=== PATIENT | female | born 1945 ===

== ENCOUNTER 2017-07-09 07:33 | Inpatient (IN) | payer BC, MEDICARE ==
[~2017-07-09] VITALS: Ht 162.6 cm; Wt 78.5 kg
[2017-07-09] VITALS (13 sets, daily range): BP systolic 127–147; BP diastolic 61–68
[~2017-07-09 07:33] MED LIST: ALLOPURINOL300 M1 ORAL; ARMOUR THYROID30 MG ORAL; BIOTIN10 MG PO; CANDESARTAN CIL16 MG PO; CARVEDILOL3.125 MG ORAL; ESTRACE42.5 GM TOPIC; FUROSEMIDE40 MG ORAL; LORAZEPAM1 MG ORAL; LYSINE500 MG PO; MELATONIN3 MG ORAL; POTASSIUM 25 M25 ME1 PO; PRAVACHOL40 MG ORAL; PRESERVISION VITAMIN ORAL; SPIRONOLACTONE100 MG ORAL; VALACYCLOVIR500 MG ORAL; VITAMIN D250000 UNI1 ORAL; [UNRECOGNIZED DRUG - OTHER] ORAL; testosterone cream TOPIC
[2017-07-09] MEDS ORDERED: LR 1000ml 1,000 ML IVLG SCH (08:22)
--- NOTE | 2017-07-09 08:22 | Anethesia Preoperative Eval ---
Anesthesia Pre-op PMH/ROS General Date of Evaluation: Jul 09, 2017 Time of Evaluation: 10:01 Anesthesiologist: Christian ASA Score: ASA 3 Mallampati Score Class I : Soft palate, uvula, fauces, pillars visible Class II: Soft palate, uvula, fauces visible Class III: Soft palate, base of uvula visible Class IV: Only hard plate visible Mallampati Classification: Class II Surgeon: Jessica Diagnosis: R Knee Pain Surgical Procedure: R TKR Anesthesia History: none Family History: no anesthesia problems Allergies: Coded Allergies: SULFA (SULFONAMIDE ANTIBIOTICS) (Verified Allergy, Severe, SWELLING, HIVES , 07/08/17) AMOXICILLIN (Verified Adverse Reaction, Severe, ANAPHYLACTIC REACTION , ) Uncoded Allergies: VICARIL (Adverse Reaction, Severe, BODY REJECTS, 07/08/17) Medications: see eMAR Past Medical History Cardiovascular: Reports: HTN, other - CHF, HL Pulmonary: Reports: TAMIE Gastrointestinal/Genitourinary: Reports: GERD, other - Colon /Rectal CA Hematology/Immune: Reports: other - Skin CA, Colon /Rectal CA Other: obesity - BMI 31 PSxH Narrative: CATHY, Thor Knee Arthroscopy Anesthesia Pre-op Phys. Exam Physician Exam Vital Signs Date Time Temp Pulse Resp B/P (MAP) Pulse Ox O2 Delivery O2 Flow Rate FiO2 07/09/17 08:21 97.7 80 20 140/61 97 Room Air Constitutional: NAD Neurologic: CN 2-12 intact Cardiovascular: RRR Respiratory: CTA Gastrointestinal: S/NT/ND Airway Exam Mallampati Score: Class II MO: limited ROM: limited Teeth: missing, intact Anesthesia Pre-op A/P Risk Assessment & Plan Assessment: ASA 3 Plan: GA, Spinal, R Adductor Block Status Change Before Surgery: No Pre-Antibiotics Dru Grams Ancef IV Given Within 1 Hr of Incision: Yes Time Given: 10:46 Roel Gonzales MD Jul 09, 2017 08:22
--- NOTE | 2017-07-09 08:23 | Immediate Post-Op Evaluation ---
Immediate Post-Op Evalulation Immediate Post-Op Evalulation Procedure: R TKA Date of Evaluation: Jul 09, 2017 Time of Evaluation: 13:04 IV Fluids: 1000 LR Blood Products: 0 Estimated Blood Loss: 50 Urinary Output: 200 Blood Pressure Systolic: 146 Blood Pressure Diastolic: 65 Pulse Rate: 98 Respiratory Rate: 16 O2 Sat by Pulse Oximetry: 100 Temperature (Fahrenheit): 98 Pain Score (1-10): 1 Nausea: No Vomiting: No Complications 0 Patient Status: awake, reacts, patent, extubated, none Hydration Status: adequate Dru Grams Ancef IV Given Within 1 Hr of Incision: Yes Time Given: 10:46 Roel Gonzales MD Jul 09, 2017 08:23
[2017-07-09] MEDS ORDERED: fentaNYL 100 mcg/2 mL IV PRN (08:30)
[2017-07-09] MEDS ORDERED: Ketorolac 30mg Inj IV PRN (08:30)
[2017-07-09] MEDS ORDERED: Norco 5mg/325mg tab ORAL PRN (08:30)
[2017-07-09] MEDS ORDERED: Metoclopramide 10mg/2ml Inj IVP PRN (08:30)
[2017-07-09] MEDS ORDERED: Midazolam 2mg/2ml Inj IVP PRN (08:30)
[2017-07-09] MEDS ORDERED: Atropine Inj 1mg/10ml Syr IV PRN (08:30)
[2017-07-09] MEDS ORDERED: oxyCODONE HCL/Acetaminophen 5/325mg ORAL PRN (08:30)
[2017-07-09] MEDS ORDERED: DiphenhydrAMINE 50mg/ml Inj IVP PRN (08:30)
[2017-07-09] MEDS ORDERED: Norco 7.5mg/325mg tab ORAL PRN (08:30)
[2017-07-09] MEDS ORDERED: Ketorolac 60mg Inj IV PRN (08:30)
[2017-07-09] MEDS ORDERED: LORazepam Inj 2mg/ml 1ml IV PRN (08:30)
[2017-07-09] MEDS ORDERED: Ropivacaine 5mg/ml Vial 20ml INJ ONE (08:40)
[2017-07-09] MEDS ORDERED: Bupivacaine 0.5% Inj 30 ml vial INJ ONE (08:41)
[2017-07-09] MEDS ORDERED: cloNIDine 1000mcg/10ml inj ONE (08:41)
[2017-07-09] MEDS ORDERED: NeoSporin Gu Irrig 1ml Amp IRRIG ONE (09:41)
[2017-07-09] MEDS ORDERED: Bacitracin 50000 Units Vial ONE (09:41)
--- NOTE | 2017-07-09 09:46 | History & Physical ---
History and Physical History & Physicial 72 year old female presents for right TKA. Patient with long standing history of osteoarthritis. Prior chart reviewed and discussed with nursing. I was asked to follow patient post op. patient overall stable. findings noted and discussed with nursing staff. PMH cardiomyopathy hypothyroid colon cancer MEDS/ALLERGIES reviewed SOCIAL HISTORY reviewed PHYSICAL EXAM WDWN NAD clear breath sounds bilaterally without rhonchi or wheeze [id number] without MRG NABS nontender no HSM no CCE nonfocal IMPRESSION cardiomyopathy hypothyroid colon cancer osteoarthritis s/p TKR PLAN 1. incentive spirometry and resume meds 2. Lovenox 3. PT evaluation and therapy 4. Hydration 5. Pain management 6. discharge once stable with outpatient follow up CARITO POLANCO Jul 09, 2017 09:46
[2017-07-09] MEDS ORDERED: NS Irrig 2000ml IRRIG ONE (10:00)
[2017-07-09] MEDS ORDERED: LR 1000ml ONE (10:00)
[2017-07-09] MEDS ORDERED: NS Irrig 1000ml ONE (10:00)
[2017-07-09] MEDS ORDERED: Propofol 200mg/20ml IV ONE (10:00)
[2017-07-09] MEDS ORDERED: Lidocaine 1% MPF 10mg/ml 5ml ONE (10:00)
[2017-07-09] MEDS ORDERED: Sterile Water Irrig 1000ml IRRIG ONE (10:00)
[2017-07-09] MEDS ORDERED: ePHEDrine 50mg/ml Inj ONE (10:00)
[2017-07-09] MEDS ORDERED: Lidocaine 1% Plain 30 ml INJ ONE (10:00)
[2017-07-09] MEDS ORDERED: Sodium Chloride 10ml vial INJ ONE (10:00)
[2017-07-09] MEDS ORDERED: Dexamethasone 4mg/ml vial ONE (10:00)
--- NOTE | 2017-07-09 10:20 | Pre-Procedure Note/Attestation ---
Pre-Procedure Note/Attestation Complete Prior to Procedure Planned Procedure: right Procedure Narrative: right total knee Indications for Procedure Pre-Operative Diagnosis: right knee arthritis Attestation I attest that I discussed the nature of the procedure; its benefits; risks and complications; and alternatives (and the risks and benefits of such alternatives ), prior to the procedure, with the patient (or the patient's legal financial foundations representative). I attest that, if there was a reasonable possibility of needing a blood transfusion, the patient (or the patient's legal financial foundations representative) was given the [facility] standardized written summary, pursuant to the [place] Blood Safety Act ([place] Health and Safety Code # 1645, as amended). I attest that I re-evaluated the patient just prior to the surgery and that there has been no change in the patient's H&P, except as documented below: SIMONA CHARLES Jul 09, 2017 10:20
--- NOTE | 2017-07-09 10:22 | General Progress Note ---
Progress Note Progress Note PRE SURGERY IN FRONT OF OR STAFF AND CLIENT AND TEAM CALLED DR SERGEI ESPANA HE CLEARED CLIENT FOR TOTAL KNEE REPLACEMENT AND STATED TO HAVE MEDS START POSTOP CALLED 10-AM Jun SIMONA CHARLES Jul 09, 2017 10:22
[2017-07-09] MEDS ORDERED: Tranexamic Acid 1,000 MG in NS 65 ML IVPB ONE (12:30)
--- NOTE | 2017-07-09 12:33 | Diagnostic Imaging Report ---
Indication: Pain 3 views of the right knee were obtained. Findings: There is joint space narrowing with marginal osteophyte formation and subchondral sclerosis. Bones are osteopenic. Genu valgum is noted. Impression: Severe osteoarthritis
[2017-07-09] MEDS: Hydromorphone 0.5mg/0.5ml inj IVP PRN ×2 (13:20→13:54)
--- NOTE | 2017-07-09 15:48 | Diagnostic Imaging Report ---
Indication: Pain 2 views of the right knee were obtained. Findings: Cemented total knee arthroplasty demonstrated. Alignment appears normal. Anterior skin camryn, a drain and soft tissue swelling/air noted. Impression: Unremarkable postop after knee replacement
[2017-07-09 16:22] LABS: MEAN CORPUSCULAR HGB CONC 31.3 G/DL (32.0-36.0); MEAN CORPUSCULAR VOLUME 96 FL (80-99); MEAN PLATELET VOLUME 8.6 FL (6.5-10.1); PLATELET COUNT 210 K/UL (150-450); RED BLOOD COUNT 3.76 M/UL (4.20-5.40); RED CELL DISTRIBUTION WIDTH 15.7 % (11.6-14.8); WHITE BLOOD COUNT 18.7 K/UL (4.8-10.8)
[2017-07-09] MEDS ORDERED: Morphine Sulfate 4mg/ml Inj IVP PRN (16:30)
[2017-07-09] MEDS ORDERED: Morphine Sulfate 2mg/ml Inj IVP PRN ×2 (16:30)
[2017-07-09 17:11] LABS: ANISOCYTOSIS 1+; BAND NEUTROPHILS % (MANUAL) 2 % (0-8); BASOPHILS % (MANUAL) 0 % (0-2); EOSINOPHILS % (MANUAL) 0 % (0-3); HYPOCHROMASIA 1+; LYMPHOCYTES % (MANUAL) 3 % (20-45); NEUTROPHILS % (MANUAL) 93 % (45-75); PLATELET ESTIMATE ADEQUATE; PLATELET MORPHOLOGY NORMAL; TOTAL CELLS COUNTED 100
[2017-07-09] MEDS: Norco 7.5mg/325mg tab ORAL PRN (17:55)
[2017-07-09] MEDS: Clindamycin 600mg 50 ML IV SCH (17:57)
[2017-07-09] MEDS: D5 1/2NS w/KCl 20mEq 1,000 ML IV SCH (17:57)
[2017-07-09] MEDS ORDERED: HYDROmorphone 1mg/ml Carpuject IVP PRN ×2 (18:45)
[2017-07-09] MEDS: HYDROmorphone 1mg/ml Carpuject IVP PRN ×2 (19:04→22:06)
--- NOTE | 2017-07-09 19:25 | 48 Hour Post Anesthesia Eval ---
Post Anesthesia Evaluation Procedure: R TKA Date of Evaluation: Jul 09, 2017 Time of Evaluation: 19:23 Blood Pressure Systolic: 146 0: 61 Pulse Rate: 91 Respiratory Rate: 18 Temperature (Fahrenheit): 97.3 O2 Sat by Pulse Oximetry: 99 Airway: patent Nausea: No Vomiting: No Pain Intensity: 1 Hydration Status: adequate Cardiopulmonary Status: stable Mental Status/LOC: patient returned to baseline Follow-up Care/Observations: 0 Post-Anesthesia Complications: 0 Follow-up care needed: N/A Roel Gonzales MD Jul 09, 2017 19:25
[2017-07-10] VITALS: BP 112/65
[2017-07-10] MEDS: Clindamycin 600mg 50 ML IV SCH ×3 (01:00→12:06)
[2017-07-10] MEDS: HYDROmorphone 1mg/ml Carpuject IVP PRN ×8 (01:01→22:53)
[2017-07-10 04:00] VITALS: BP 137/66
[2017-07-10] MEDS: D5 1/2NS w/KCl 20mEq 1,000 ML IV SCH (06:37)
[2017-07-10 08:00] VITALS: BP 128/57
[2017-07-10] MEDS: Furosemide 40mg tab ORAL SCH (08:30)
[2017-07-10] MEDS: valACYclovir HCL 500mg tab ORAL SCH (08:30)
[2017-07-10] MEDS: Spironolactone 50mg tab ORAL SCH ×3 (08:30→21:00)
[2017-07-10] MEDS: Estradiol Vaginal Cr 42.5 Gm Tube VAGIN SCH ×2 (08:31→09:00)
[2017-07-10] MEDS: Enoxaparin 40mg Inj SUBQ SCH (08:33)
[2017-07-10 08:37] LABS: MEAN CORPUSCULAR HEMOGLOBIN 31.9 PG (27.0-31.0); MEAN CORPUSCULAR HGB CONC 32.9 G/DL (32.0-36.0); MEAN CORPUSCULAR VOLUME 97 FL (80-99); MEAN PLATELET VOLUME 8.5 FL (6.5-10.1); PLATELET COUNT 186 K/UL (150-450); RED BLOOD COUNT 3.34 M/UL (4.20-5.40); RED CELL DISTRIBUTION WIDTH 15.4 % (11.6-14.8); WHITE BLOOD COUNT 16.5 K/UL (4.8-10.8)
[2017-07-10 10:56] LABS: ANISOCYTOSIS 1+; BAND NEUTROPHILS % (MANUAL) 0 % (0-8); BASOPHILS % (MANUAL) 0 % (0-2); EOSINOPHILS % (MANUAL) 0 % (0-3); HYPOCHROMASIA 1+; LYMPHOCYTES % (MANUAL) 6 % (20-45); NEUTROPHILS % (MANUAL) 86 % (45-75); PLATELET ESTIMATE ADEQUATE; PLATELET MORPHOLOGY NORMAL; TOTAL CELLS COUNTED 100
[2017-07-10 12:00] VITALS: BP 139/63
--- NOTE | 2017-07-10 13:45 | General Progress Note ---
Assessment/Plan Assessment/Plan IMPRESSION cardiomyopathy hypothyroid colon cancer osteoarthritis s/p TKR PLAN 1. incentive spirometry and resume meds 2. Lovenox to start 3. PT evaluation and therapy 4. Hydration 5. Pain management 6. discharge once stable with outpatient follow up impression, plan, and exam edited and reviewed in detail care discussed with RN Subjective Allergies: Coded Allergies: SULFA (SULFONAMIDE ANTIBIOTICS) (Verified Allergy, Severe, SWELLING, HIVES , 07/08/17) AMOXICILLIN (Verified Adverse Reaction, Severe, ANAPHYLACTIC REACTION , ) Uncoded Allergies: VICARIL (Adverse Reaction, Severe, BODY REJECTS, 07/08/17) Subjective stable has some pain no distress Objective Last 24 Hour Vital Signs Date Time Temp Pulse Resp B/P (MAP) Pulse Ox O2 Delivery O2 Flow Rate FiO2 07/10/17 12:46 97.0 07/10/17 12:00 98.2 96 19 139/63 97 Room Air 07/10/17 08:00 98.2 95 19 128/57 100 Nasal Cannula 3.0 07/10/17 04:00 97.0 93 20 137/66 99 Nasal Cannula 07/10/17 04:00 87 07/10/17 00:00 97.0 97 20 112/65 99 Nasal Cannula 2.0 07/10/17 00:00 94 07/09/17 20:00 97.7 64 18 127/61 97 Room Air 07/09/17 20:00 95 07/09/17 19:25 91 18 99 07/09/17 16:00 99 07/09/17 15:44 97.3 91 18 147/64 99 Nasal Cannula 3.0 07/09/17 14:18 97.6 93 20 141/68 100 Nasal Cannula 3.0 07/09/17 14:08 97.6 95 20 142/65 100 Nasal Cannula 3.0 07/09/17 14:06 98.0 07/09/17 14:06 98.0 07/09/17 13:52 91 20 138/64 100 Nasal Cannula 3.0 Intake and Output 07/10/17 07/11/17 19:00 07:00 Intake Total 365 ml Output Total 350 ml Balance 15 ml Intake Oral 240 ml IV Total 125 ml Output Urine Total 350 ml # Voids 1 Laboratory Tests 07/09/17 15:20: White Blood Count 18.7H, Red Blood Count 3.76L, Hemoglobin 11.3L, Hematocrit 36.1L, Mean Corpuscular Volume 96, Mean Corpuscular Hemoglobin 30.0, Mean Corpuscular Hemoglobin Concent 31.3L, Red Cell Distribution Width 15.7H, Platelet Count 210, Mean Platelet Volume 8.6, Neutrophils (%) (Auto) , Lymphocytes (%) (Auto) , Monocytes (%) (Auto) , Eosinophils (%) (Auto) , Basophils (%) (Auto) , Differential Total Cells Counted 100, Neutrophils % ( Manual) 93H, Lymphocytes % (Manual) 3L, Monocytes % (Manual) 2, Eosinophils % ( Manual) 0, Basophils % (Manual) 0, Band Neutrophils 2, Platelet Estimate Adequate, Platelet Morphology Normal, Hypochromasia 1+, Anisocytosis 1+, Prothrombin Time 10.0, Prothromb Time International Ratio 1.0 07/10/17 07:35: White Blood Count 16.5H, Red Blood Count 3.34L, Hemoglobin 10.6L, Hematocrit 32.3L, Mean Corpuscular Volume 97, Mean Corpuscular Hemoglobin 31.9H, Mean Corpuscular Hemoglobin Concent 32.9, Red Cell Distribution Width 15.4H, Platelet Count 186, Mean Platelet Volume 8.5, Neutrophils (%) (Auto) , Lymphocytes (%) (Auto) , Monocytes (%) (Auto) , Eosinophils (%) (Auto) , Basophils (%) (Auto) , Differential Total Cells Counted 100, Neutrophils % ( Manual) 86H, Lymphocytes % (Manual) 6L, Monocytes % (Manual) 8, Eosinophils % ( Manual) 0, Basophils % (Manual) 0, Band Neutrophils 0, Platelet Estimate Adequate, Platelet Morphology Normal, Hypochromasia 1+, Anisocytosis 1+, Prothrombin Time 10.0, Prothromb Time International Ratio 1.0 Height (Feet): 5 Height (Inches): 4.00 Weight (Pounds): 173 Objective WDWN NAD clear breath sounds bilaterally without rhonchi or wheeze [id number] without MRG NABS nontender no HSM no CCE nonfocal CARITO POLANCO Jul 10, 2017 13:45
[2017-07-10 16:00] VITALS: BP 125/60
[2017-07-10 20:50] VITALS: BP 119/52
[2017-07-11 00:43] VITALS: BP 139/62
[2017-07-11] MEDS: HYDROmorphone 1mg/ml Carpuject IVP PRN ×3 (02:47→06:21)
[2017-07-11 04:50] VITALS: BP 118/64
[2017-07-11] MEDS ORDERED: dilTIAZem HCl 25mg/5ml Inj IV ONE ×2 (06:00→08:45)
[2017-07-11 08:00] VITALS: BP 111/67
--- NOTE | 2017-07-11 08:30 | Operative Note - Dictated ---
DATE OF OPERATION: 07/09/2017 PREOPERATIVE DIAGNOSIS: Right knee end-stage osteoarthritis with valgus deformity. POSTOPERATIVE DIAGNOSIS: Right knee end-stage osteoarthritis with valgus deformity. PROCEDURES: Right total knee replacement, modifier 22 secondary to difficulty of the valgus deformity. SURGEON: Gonzales Langley M.D. CANOE BUILDER: Roel Gonzales M.D. SILK CONDITIONER: None. PREOPERATIVE NOTE: This is a pleasant lady who has been having issues with her knee and has knock knee deformity, has had multiple treatments. She has end-stage pain, end-stage findings. I explained to her the surgery and risks being infection, bleeding, anesthetic risks, neurovascular damage, DVT, PE, and failure of the operation. The patient agreed. Consents were obtained. OPERATIVE ROOM NOTE: Under the benefit of endotracheal intubation, general anesthetic, spinal anesthetic, and an adductor, the patient's right knee was prepped and draped in the appropriate manner. The patient was given 1 gram of antibiotic Ancef. A midline incision was done and I incised through subcutaneous tissue down through medial retinaculum, and everted the patella. I then proceeded to remove all the osteophytes. I then proceeded to the femur on the inferior and lateral planes taking a 7 degree valgus cut. I then made my anterior cuts, posterior cuts, anterior chamfer and posterior chamfer cuts after sizing it to be a 9. I was very pleased with the position. I then proceeded to make a cut upon the proximal tibia. I aligned it with the mechanical axis. I took 2 mm off the low side, which is lateral. A cut was made and the tibial plateau block was removed. We had nice alignment with some slight valgus, 7 degrees. We had full medial and lateral stability at 0, 30, 60, 90, and 120. I then proceeded to accept these components. I accepted an F tibia as well as a 2 polyethylene. I also shaved off the patella using 29 mm patella plug. With that, we all bone was prepped with pulse lavage. I then cemented the tibia in, cemented the femur in, and the patella plug in, placed in a 10 mm spacer. I irrigated the wound copiously, closing the retinaculum with #2 Ethibond and FiberWire as the patient was allergic to Vicryl. I closed the subcutaneous tissue with catgut and the skin with camryn. The patient went to recovery room in stable condition. There were no complications during the procedure, modifier 22 secondary to difficulty of valve and the valgus deformity was done. Bal Nacho Langley DR: SARAH JOB#: [id number] CC: REILLY
[2017-07-11] MEDS: Furosemide 40mg tab ORAL SCH (08:41)
[2017-07-11] MEDS: valACYclovir HCL 500mg tab ORAL SCH (08:42)
[2017-07-11] MEDS: Enoxaparin 40mg Inj SUBQ SCH (08:47)
[2017-07-11] MEDS: Estradiol Vaginal Cr 42.5 Gm Tube VAGIN SCH (08:53)
--- NOTE | 2017-07-11 08:57 | General Progress Note ---
Assessment/Plan Assessment/Plan IMPRESSION cardiomyopathy hypothyroid colon cancer osteoarthritis s/p TKR afib with RVR PLAN 1. incentive spirometry and resume meds 2. Lovenox daily 3. PT evaluation and therapy 4. Cardizem IV to repeat 5. Pain management 6. discharge once stable with outpatient follow up impression, plan, and exam edited and reviewed in detail care discussed with RN Subjective Allergies: Coded Allergies: SULFA (SULFONAMIDE ANTIBIOTICS) (Verified Allergy, Severe, SWELLING, HIVES , 07/08/17) AMOXICILLIN (Verified Adverse Reaction, Severe, ANAPHYLACTIC REACTION , ) Uncoded Allergies: VICARIL (Adverse Reaction, Severe, BODY REJECTS, 07/08/17) Subjective had atrial fib with RVR hemodynamics stable no distress Objective Last 24 Hour Vital Signs Date Time Temp Pulse Resp B/P (MAP) Pulse Ox O2 Delivery O2 Flow Rate FiO2 07/11/17 08:41 70 111/67 07/11/17 08:00 97.0 70 20 111/67 97 Room Air 07/11/17 06:05 140 119/70 07/11/17 04:50 98.3 131 20 118/64 94 Room Air 07/11/17 04:26 115 07/11/17 00:43 98.1 91 20 139/62 92 Room Air 07/11/17 00:00 92 07/10/17 20:50 97.5 88 20 119/52 93 Room Air 07/10/17 20:00 97 07/10/17 16:14 97.0 07/10/17 16:00 103 07/10/17 16:00 98.2 91 19 125/60 98 Nasal Cannula 3.0 07/10/17 12:00 91 07/10/17 12:00 98.2 96 19 139/63 97 Room Air Height (Feet): 5 Height (Inches): 4.00 Weight (Pounds): 173 Objective WDWN NAD clear breath sounds bilaterally without rhonchi or wheeze S1S2 iRR tachy without MRG NABS nontender no HSM no CCE nonfocal CARITO POLANCO Jul 11, 2017 08:57
[2017-07-11 09:11] LABS: MEAN CORPUSCULAR HEMOGLOBIN 30.4 PG (27.0-31.0); MEAN CORPUSCULAR HGB CONC 31.2 G/DL (32.0-36.0); MEAN CORPUSCULAR VOLUME 97 FL (80-99); MEAN PLATELET VOLUME 8.6 FL (6.5-10.1); PLATELET COUNT 196 K/UL (150-450); RED CELL DISTRIBUTION WIDTH 15.7 % (11.6-14.8); WHITE BLOOD COUNT 15.7 K/UL (4.8-10.8)
[2017-07-11 09:21] LABS: INR 0.9 (0.9-1.1); PROTHROMBIN TIME 9.7 SEC (9.30-11.50)
[2017-07-11] MEDS: Hydromorphone 0.5mg/0.5ml inj IVP PRN ×3 (09:33→15:44)
[2017-07-11 10:09] LABS: ANISOCYTOSIS 1+; BAND NEUTROPHILS % (MANUAL) 0 % (0-8); BASOPHILS % (MANUAL) 0 % (0-2); EOSINOPHILS % (MANUAL) 1 % (0-3); HYPOCHROMASIA 1+; LYMPHOCYTES % (MANUAL) 5 % (20-45); NEUTROPHILS % (MANUAL) 84 % (45-75); PLATELET ESTIMATE ADEQUATE; PLATELET MORPHOLOGY NORMAL; TOTAL CELLS COUNTED 100
[2017-07-11 12:00] VITALS: BP 118/56
[2017-07-11 13:32] LABS: ALANINE AMINOTRANSFERASE 25 U/L (12-78); ALBUMIN/GLOBULIN RATIO 1.1 (1.0-2.7); ANION GAP 7 mmol/L (5-15); ASPARTATE AMINO TRANSFERASE 27 U/L (15-37); CALCIUM 9.8 MG/DL (8.5-10.1); CARBON DIOXIDE 29 MMOL/L (21-32); CHLORIDE 101 MMOL/L (98-107); CREATININE 1.6 MG/DL (0.55-1.30); SODIUM 137 MMOL/L (136-145); TOTAL PROTEIN 6.5 G/DL (6.4-8.2)
[2017-07-11] MEDS: Metoprolol 5mg/5ml Inj IVP SCH ×2 (13:44→14:03)
[2017-07-11] MEDS ORDERED: Enoxaparin 40mg Inj SUBQ ONE (14:15)
--- NOTE | 2017-07-11 14:42 | Consultation ---
History of Present Illness General Date patient seen: Jul 11, 2017 Present Illness Allergies: Coded Allergies: SULFA (SULFONAMIDE ANTIBIOTICS) (Verified Allergy, Severe, SWELLING, HIVES , 07/08/17) AMOXICILLIN (Verified Adverse Reaction, Severe, ANAPHYLACTIC REACTION , ) Uncoded Allergies: VICARIL (Adverse Reaction, Severe, BODY REJECTS, 07/08/17) Medication History Scheduled Allopurinol* (Allopurinol*), 300 MG ORAL DAILY, (Reported) Biotin (Biotin), 1,000 MG PO THREE TIMES A DAY, (Reported) Candesartan Cilexetil (Candesartan Cilexetil), 16 MG PO DAILY, (Reported) Carvedilol* (Carvedilol*), 3.125 MG ORAL EVERY OTHER DAY, (Reported) Ergocalciferol (Vitamin D2)* (Vitamin D*), 50,000 UNIT ORAL ONCE A WEEK, ( Reported) Estradiol* (Estrace*), 1 APPLIC TOPIC DAILY, (Reported) Furosemide* (Lasix*), 40 MG ORAL DAILY, (Reported) Lysine (Lysine), Unknown Dose PO BEDTIME, (Reported) Melatonin (Melatonin), 3 MG ORAL BEDTIME, (Reported) Pravastatin Sodium (Pravachol), 20 MG ORAL DAILY, (Reported) Spironolactone* (Spironolactone*), 50 MG ORAL DAILY, (Reported) Thyroid* ([place] Thyroid*), 90 MG ORAL DAILY, (Reported) Valacyclovir Hcl* (Valtrex*), 500 MG ORAL DAILY, (Reported) [ev plus], 500 MG ORAL THREE TIMES A DAY, (Reported) [preservision vitamin], Unknown Dose ORAL TWICE A DAY, (Reported) [testosterone cream], 6 MG TOPIC DAILY, (Reported) Miscellaneous Medications Lorazepam* (Lorazepam*), 1 MG ORAL, (Reported) Potassium Bicarbonate/Cit Ac (Potassium 25 Meq Tablet Eff), 25 MEQ PO, (Reported ) Patient History Healthcare decision maker MARY- Resuscitation status Full Code Advanced Directive on File No Physical Exam Last 24 Hour Vital Signs Date Time Temp Pulse Resp B/P (MAP) Pulse Ox O2 Delivery O2 Flow Rate FiO2 07/11/17 14:03 121 108/85 07/11/17 13:44 130 118/56 07/11/17 12:00 97.1 67 21 118/56 91 Room Air 07/11/17 08:57 140 111/67 07/11/17 08:41 70 111/67 07/11/17 08:00 97.0 70 20 111/67 97 Room Air 07/11/17 06:05 140 119/70 07/11/17 04:50 98.3 131 20 118/64 94 Room Air 07/11/17 04:26 115 07/11/17 00:43 98.1 91 20 139/62 92 Room Air 07/11/17 00:00 92 07/10/17 20:50 97.5 88 20 119/52 93 Room Air 07/10/17 20:00 97 07/10/17 16:14 97.0 07/10/17 16:00 103 07/10/17 16:00 98.2 91 19 125/60 98 Nasal Cannula 3.0 Laboratory Tests Test 07/11/17 08:25 White Blood Count 15.7 K/UL (4.8-10.8) H Red Blood Count 3.30 M/UL (4.20-5.40) L Hemoglobin 10.0 G/DL (12.0-16.0) L Hematocrit 32.1 % (37.0-47.0) L Mean Corpuscular Volume 97 FL (80-99) Mean Corpuscular Hemoglobin 30.4 PG (27.0-31.0) Mean Corpuscular Hemoglobin Concent 31.2 G/DL (32.0-36.0) L Red Cell Distribution Width 15.7 % (11.6-14.8) H Platelet Count 196 K/UL (150-450) Mean Platelet Volume 8.6 FL (6.5-10.1) Neutrophils (%) (Auto) % (45.0-75.0) Lymphocytes (%) (Auto) % (20.0-45.0) Monocytes (%) (Auto) % (1.0-10.0) Eosinophils (%) (Auto) % (0.0-3.0) Basophils (%) (Auto) % (0.0-2.0) Differential Total Cells Counted 100 Neutrophils % (Manual) 84 % (45-75) H Lymphocytes % (Manual) 5 % (20-45) L Monocytes % (Manual) 10 % (1-10) Eosinophils % (Manual) 1 % (0-3) Basophils % (Manual) 0 % (0-2) Band Neutrophils 0 % (0-8) Platelet Estimate Adequate Platelet Morphology Normal Hypochromasia 1+ Anisocytosis 1+ Prothrombin Time 9.7 SEC (9.30-11.50) Prothromb Time International Ratio 0.9 (0.9-1.1) Sodium Level 137 MMOL/L (136-145) Potassium Level 4.0 MMOL/L (3.5-5.1) Chloride Level 101 MMOL/L (98-107) Carbon Dioxide Level 29 MMOL/L (21-32) Anion Gap 7 mmol/L (5-15) Blood Urea Nitrogen 62 mg/dL (7-18) H Creatinine 1.6 MG/DL (0.55-1.30) H Estimat Glomerular Filtration Rate mL/min (>60) Glucose Level 150 MG/DL (74-106) H Calcium Level 9.8 MG/DL (8.5-10.1) Magnesium Level 2.0 MG/DL (1.8-2.4) Total Bilirubin 0.3 MG/DL (0.2-1.0) Aspartate Amino Transf (AST/SGOT) 27 U/L (15-37) Alanine Aminotransferase (ALT/SGPT) 25 U/L (12-78) Alkaline Phosphatase 52 U/L (46-116) Pro-B-Type Natriuretic Peptide 1270 pg/mL (0-125) H Total Protein 6.5 G/DL (6.4-8.2) Albumin 3.4 G/DL (3.4-5.0) Globulin 3.1 g/dL Albumin/Globulin Ratio 1.1 (1.0-2.7) Height (Feet): 5 Height (Inches): 4.00 Weight (Pounds): 173 Medications Current Medications Medications (Trade) Dose Ordered Sig/Wendy Route PRN Reason Start Time Stop Time Status Last Admin Dose Admin Acetaminophen/ Hydrocodone Bitart ([place] 10/325) 1 ea Q6H ORAL 07/11/17 14:30 07/18/17 14:29 UNV Acetaminophen/ Hydrocodone Bitart ([place] 7.5/325) 1 ea Q4H PRN ORAL Mild Pain (Pain Scale 1-3) 07/09/17 16:30 07/16/17 16:29 07/09/17 17:55 Allopurinol (Allopurinol) 300 mg DAILY ORAL 07/10/17 09:00 08/09/17 08:59 07/11/17 08:41 Carvedilol (Coreg) 6.25 mg Q12HR ORAL 07/11/17 21:00 08/10/17 20:59 Enoxaparin Sodium (Lovenox) 80 mg DAILY@1400 SUBQ 07/12/17 14:00 08/11/17 13:59 Estradiol (Estrace) 1 applic DAILY VAGIN 07/10/17 09:00 08/09/17 08:59 Furosemide (Lasix) 40 mg DAILY ORAL 07/10/17 09:00 08/09/17 08:59 07/11/17 08:41 Gabapentin (Neurontin) 100 mg THREE TIMES A DAY ORAL 07/11/17 14:30 08/10/17 14:29 UNV Hydromorphone HCl (Dilaudid) 1 mg Q3H PRN IVP Moderate Pain (Pain Scale 4-6) 07/11/17 07:00 07/16/17 18:59 Hydromorphone HCl (Dilaudid) 1.5 mg Q3H PRN IVP Severe Pain (Pain Scale 7-10) 07/11/17 07:00 07/16/17 18:59 07/11/17 12:41 Pravastatin Sodium (Pravachol) 20 mg QHS ORAL 07/09/17 21:00 08/08/17 20:59 07/10/17 20:41 Spironolactone (Aldactone) 50 mg QHS ORAL 07/10/17 21:00 08/09/17 08:59 Thyroid ([place] Thyroid) 90 mg ACBREAKFAST ORAL 07/10/17 06:30 08/09/17 06:29 07/11/17 06:24 Valacyclovir HCl (Valtrex) 500 mg DAILY ORAL 07/10/17 09:00 08/09/17 08:59 07/11/17 08:42 Assessment/Plan Assessment/Plan (1) Right knee pain (2) Right knee OA (3) S/p Right TKR Seen dictated MIGUEL BOWERS Jul 11, 2017 14:42
[2017-07-11] MEDS: Norco 10mg/325mg tab ORAL SCH ×2 (15:00→21:00)
[2017-07-11 16:00] VITALS: BP 106/58
[2017-07-11] MEDS ORDERED: Metoprolol 5mg/5ml Inj IVP ONE (17:00)
[2017-07-11 20:45] VITALS: BP 104/61
[2017-07-11] MEDS: Spironolactone 50mg tab ORAL SCH (21:00)
[2017-07-11] MEDS ORDERED: Carvedilol 6.25mg Tab ORAL SCH (21:00)
--- NOTE | 2017-07-11 21:23 | General Progress Note ---
Progress Note Progress Note doing well hgb 10.3 NVI ambulating xrays good contimue therapy SIMONA CHARLES Jul 11, 2017 21:23
[2017-07-11] MEDS ORDERED: Ketorolac 30mg Inj IV ONE (21:50)
[2017-07-12 01:00] VITALS: BP 102/61
--- NOTE | 2017-07-12 01:32 | Consultation ---
DATE OF CONSULTATION: 07/11/2017 CARDIOLOGY CONSULTATION REQUESTING PHYSICIAN: Robbi Pal M.D. REASON FOR CONSULTATION: Rapid atrial fibrillation. HISTORY OF PRESENT ILLNESS: This 72-year-old female who is two days postop following right total knee arthroplasty. She does have a prior history of paroxysmal atrial fibrillation, but episodes in the past have been exceedingly rare and very self-limited. Last night, she was noted to have a rapid heart rates and this morning, she developed rapid atrial fibrillation. She has some shortness of breath. No chest pain. PAST MEDICAL HISTORY: 1. Hypertension. 2. Hypothyroidism. 3. History of colon cancer. 4. Paroxysmal atrial fibrillation. 5. Hyperlipidemia. ALLERGIES: Sulfa and penicillin. SOCIAL HISTORY: Negative for smoking, alcohol, or substance abuse. MEDICATIONS: Prior to admission reviewed and reconciled. PHYSICAL EXAMINATION: VITAL SIGNS: Blood pressure 118/56, pulse 130, respiratory rate 21, and afebrile. HEENT: Normocephalic and atraumatic. Conjunctivae pink. Oropharynx clear. NECK: Supple. Jugular venous pressure normal. LUNGS: Clear. CARDIAC: Irregularly irregular. Normal rapid rate. Normal S1 and S2. No murmur. ABDOMEN: Soft. EXTREMITIES: With trace edema. Drain in place right knee. LABORATORY AND DIAGNOSTIC DATA: Reviewed. IMPRESSION: 1. Postoperative day #2 following right total knee arthroplasty. 2. Paroxysmal atrial fibrillation now with rapid ventricular response. 3. Acute on chronic diastolic congestive heart failure. 4. History of hypothyroidism. PLAN: Cardiac monitoring. Cannot fully anticoagulate due to bleeding risk, however, we will obtain surgical clearance. Intravenous beta-edwar. Advanced dose of oral beta-edwar. Consider intravenous amiodarone loading if persistent rapid atrial fibrillation. Check electrolytes. Diuresis with caution. The above was reviewed with the patient's private breast puller by telephone, Dr. Roche. Francois Cooper M.D. DR: GORGE JOB#: [id number] CC:
[2017-07-12] MEDS: Hydromorphone 0.5mg/0.5ml inj IVP PRN ×4 (01:36→18:25)
[2017-07-12] MEDS: Norco 10mg/325mg tab ORAL SCH ×4 (03:00→21:21)
[2017-07-12 04:55] VITALS: BP 104/57
--- NOTE | 2017-07-12 07:59 | General Progress Note ---
Assessment/Plan Assessment/Plan IMPRESSION cardiomyopathy hypothyroid colon cancer osteoarthritis s/p TKR afib with RVR CRI (bun at 60 baseline) PLAN 1. incentive spirometry and resume meds 2. Lovenox daily at 1mg/kg bid 3. PT evaluation and therapy 4. Laxatives 5. Pain management 6. discharge in am if cleared by cards impression, plan, and exam edited and reviewed in detail care discussed with RN Subjective Allergies: Coded Allergies: SULFA (SULFONAMIDE ANTIBIOTICS) (Verified Allergy, Severe, SWELLING, HIVES , 07/08/17) AMOXICILLIN (Verified Adverse Reaction, Severe, ANAPHYLACTIC REACTION , ) Uncoded Allergies: VICARIL (Adverse Reaction, Severe, BODY REJECTS, 07/08/17) Subjective afib now rate controlled care noted d/w RN constipated Objective Last 24 Hour Vital Signs Date Time Temp Pulse Resp B/P (MAP) Pulse Ox O2 Delivery O2 Flow Rate FiO2 07/12/17 04:55 97.7 89 20 104/57 97 Room Air 89 07/12/17 04:00 101 07/12/17 01:00 97.2 60 20 102/61 98 Nasal Cannula 2.0 07/12/17 00:00 89 07/11/17 21:15 103 104/61 07/11/17 20:45 97.9 103 20 104/61 96 Room Air 07/11/17 20:00 115 07/11/17 17:09 123 106/58 07/11/17 16:00 116 07/11/17 16:00 98.1 115 20 106/58 95 Room Air 07/11/17 14:03 121 108/85 07/11/17 13:44 130 118/56 07/11/17 12:00 97.1 67 21 118/56 91 Room Air 07/11/17 12:00 132 07/11/17 08:57 140 111/67 07/11/17 08:41 70 111/67 07/11/17 08:00 97.0 70 20 111/67 97 Room Air 07/11/17 08:00 140 Laboratory Tests 07/11/17 08:25: White Blood Count 15.7H, Red Blood Count 3.30L, Hemoglobin 10.0L, Hematocrit 32.1L, Mean Corpuscular Volume 97, Mean Corpuscular Hemoglobin 30.4, Mean Corpuscular Hemoglobin Concent 31.2L, Red Cell Distribution Width 15.7H, Platelet Count 196, Mean Platelet Volume 8.6, Neutrophils (%) (Auto) , Lymphocytes (%) (Auto) , Monocytes (%) (Auto) , Eosinophils (%) (Auto) , Basophils (%) (Auto) , Differential Total Cells Counted 100, Neutrophils % ( Manual) 84H, Lymphocytes % (Manual) 5L, Monocytes % (Manual) 10, Eosinophils % ( Manual) 1, Basophils % (Manual) 0, Band Neutrophils 0, Platelet Estimate Adequate, Platelet Morphology Normal, Hypochromasia 1+, Anisocytosis 1+, Prothrombin Time 9.7, Prothromb Time International Ratio 0.9, Sodium Level 137, Potassium Level 4.0, Chloride Level 101, Carbon Dioxide Level 29, Anion Gap 7, Blood Urea Nitrogen 62H, Creatinine 1.6H, Estimat Glomerular Filtration Rate , Glucose Level 150H, Calcium Level 9.8, Magnesium Level 2.0, Total Bilirubin 0.3 , Aspartate Amino Transf (AST/SGOT) 27, Alanine Aminotransferase (ALT/SGPT) 25, Alkaline Phosphatase 52, Pro-B-Type Natriuretic Peptide 1270H, Total Protein 6.5 , Albumin 3.4, Globulin 3.1, Albumin/Globulin Ratio 1.1 07/12/17 06:34: White Blood Count [Pending], Red Blood Count [Pending], Hemoglobin [Pending], Hematocrit [Pending], Mean Corpuscular Volume [Pending], Mean Corpuscular Hemoglobin [Pending], Mean Corpuscular Hemoglobin Concent [Pending], Red Cell Distribution Width [Pending], Platelet Count [Pending], Mean Platelet Volume [ Pending], Neutrophils (%) (Auto) [Pending], Lymphocytes (%) (Auto) [Pending], Monocytes (%) (Auto) [Pending], Eosinophils (%) (Auto) [Pending], Basophils (%) (Auto) [Pending], Prothrombin Time [Pending], Prothromb Time International Ratio [Pending], Sodium Level [Pending], Potassium Level [Pending], Chloride Level [Pending], Carbon Dioxide Level [Pending], Blood Urea Nitrogen [Pending], Creatinine [Pending], Estimat Glomerular Filtration Rate [Pending], Glucose Level [Pending], Calcium Level [Pending], Troponin I [Pending] Height (Feet): 5 Height (Inches): 4.00 Weight (Pounds): 173 Objective WDWN NAD clear breath sounds bilaterally without rhonchi or wheeze S1S2 iRR rate controlled without MRG NABS nontender no HSM no CCE nonfocal CARITO POLANCO Jul 12, 2017 07:59
[2017-07-12 08:00] VITALS: BP 112/52
[2017-07-12 08:03] LABS: BASOPHILS % (AUTO) 0.7 % (0.0-2.0); EOSINOPHILS % (AUTO) 3.9 % (0.0-3.0); LYMPHOCYTES % (AUTO) 14.8 % (20.0-45.0); MEAN CORPUSCULAR HEMOGLOBIN 30.7 PG (27.0-31.0); MEAN CORPUSCULAR HGB CONC 31.7 G/DL (32.0-36.0); MEAN CORPUSCULAR VOLUME 97 FL (80-99); MEAN PLATELET VOLUME 8.1 FL (6.5-10.1); MONOCYTES % (AUTO) 9.7 % (1.0-10.0); NEUTROPHILS % (AUTO) 70.9 % (45.0-75.0); PLATELET COUNT 152 K/UL (150-450); RED BLOOD COUNT 2.89 M/UL (4.20-5.40); RED CELL DISTRIBUTION WIDTH 15.2 % (11.6-14.8)
[2017-07-12 08:15] LABS: INR 0.9 (0.9-1.1); PROTHROMBIN TIME 9.7 SEC (9.30-11.50)
[2017-07-12 08:23] LABS: ANION GAP 8 mmol/L (5-15); CALCIUM 9.6 MG/DL (8.5-10.1); CARBON DIOXIDE 29 MMOL/L (21-32); CHLORIDE 100 MMOL/L (98-107); CREATININE 1.7 MG/DL (0.55-1.30); POTASSIUM 4.2 MMOL/L (3.5-5.1); SODIUM 136 MMOL/L (136-145)
--- NOTE | 2017-07-12 08:30 | Consultation ---
DATE OF CONSULTATION: 07/11/2017 PAIN MANAGEMENT CONSULTATION CONSULTING PHYSICIAN: Yinka Turk M.D. REFERRING PHYSICIAN: Robbi Pal M.D. and Gonzales Langley M.D. ATTENDING PHYSICIAN: Gonzales Langley M.D. PHYSICIAN ADMISSION NURSE COORDINATOR: Tr Gardner CHIEF COMPLAINT: Right knee pain. HISTORY OF PRESENT ILLNESS: This is a 72-year-old female, who is being seen on the telemetry floor of [facility] for initial comprehensive pain management consultation. The patient is reporting that she has been having right knee pain for the past 14 years of her life. It is a constant, chronic pain, rating at 9/10, describing as dull, sharp, aching pain, increased with movement, and reduced with medication of Dilaudid. The patient had total knee replacement of the right knee on 07/09/[address] Langley and has been having severe pain with physical therapy on Dilaudid 1 to 1.5 mg IV every three hours as needed for [id number] pain with [place] 7.5/325 mg one tablet every four hours as needed for mild pain. She has received six doses of the Dilaudid 1.5 mg in the last 24 hours. Due to the severity of her pain and limitation in physical therapy, we were consulted so that the patient would have adequate pain control while here in the hospital. PAST MEDICAL HISTORY: Hypertension, cardiomyopathy, hypothyroidism, colon cancer. PAST SURGICAL HISTORY: Tonsillectomy, appendectomy, hysterectomy, bunionectomy. SOCIAL HISTORY: Denies smoking, drinking, or intravenous drug abuse. MEDICATIONS: Allopurinol, Biotin, candesartan, carvedilol, esterase, Lasix, , melatonin, , spironolactone, Flushing, Valtrex, lorazepam, and potassium. ALLERGIES: Amoxicillin and sulfa. REVIEW OF SYSTEMS: Denies rash, fever, chills, sweating, dizziness, drowsiness, or change in her weight. No shortness of breath, chest pain, palpitations, or cough. No nausea, vomiting, diarrhea, or blood in the stool or urine. No bowel or bladder incontinence. No dysuria. She is complaining of right hip pain. PHYSICAL EXAMINATION: GENERAL: Alert, awake, and oriented. VITAL SIGNS: Blood pressure 118/56, heart rate is 67, oxygen saturation 91%, respiratory rate 19, temperature 98.1 degrees Fahrenheit. Height is 5 feet 4 inches and weight is 173 pounds. HEENT: PERRLA. NECK: Range of motion is full in all directions. No tenderness to paracervical muscles. No adenopathy. LUNGS: Clear. HEART: S1 and S2, regular. ABDOMEN: Benign. BACK: Range of motion is full on flexion and extension. No tenderness to paraspinal muscles, trapezius, or rhomboid muscles. EXTREMITIES: Upper extremity range of motion is full in all directions. Motor is intact. No cyanosis. No clubbing. No edema. Sensory is intact. Reflexes are not obtainable. No adenopathy. Lower extremity range of motion is decreased due to the patient's clinical condition with bandages noted on the right knee. Tenderness to palpation. No cyanosis. No clubbing. Sensory is intact. Reflexes are not obtainable. No adenopathy. ASSESSMENT AND PLAN: This is a 72-year-old female with right knee pain and right knee osteoarthritis, status post total knee replacement. The patient will be continued on [place] 7.5/325 mg one tablet every four hours as needed for mild pain, Dilaudid 1 to 1.5 mg IV every three hours as needed for moderate to severe pain. We will start the patient on [place] 10/325 mg one tablet every six hours around the clock and hold for over sedation and Neurontin 100 mg tablet three times a day. The patient was discussed with Dr. Turk and Dr. Turk concurred. We will follow the patient. Thank you very much for the courtesy of this consultation. Yinka Turk M.D. NANCY Gardner DR: Key JOB#: [id number] CC:
--- NOTE | 2017-07-12 08:51 | General Progress Note ---
Assessment/Plan Assessment/Plan (1) Right knee pain (2) Right knee OA (3) S/p Right TKR Pt will be continued on Dilaudid, [place] and Neurontin We will start Lactulose and Relistor No discharge RX needed due to patient stating she has [place] at home. D/w Dr. Turk and he concurred. Subjective Date patient seen: Jul 12, 2017 Time patient seen: 08:00 - am Constitutional: Reports: no symptoms HEENT: Reports: no symptoms Cardiovascular: Reports: no symptoms Respiratory: Reports: no symptoms Gastrointestinal/Abdominal: Reports: no symptoms Genitourinary: Reports: no symptoms Neurologic/Psychiatric: Reports: no symptoms Endocrine: Reports: no symptoms Hematologic/Lymphatic: Reports: no symptoms Allergies: Coded Allergies: SULFA (SULFONAMIDE ANTIBIOTICS) (Verified Allergy, Severe, SWELLING, HIVES , 07/08/17) AMOXICILLIN (Verified Adverse Reaction, Severe, ANAPHYLACTIC REACTION , ) Uncoded Allergies: VICARIL (Adverse Reaction, Severe, BODY REJECTS, 07/08/17) Subjective Patient reports that her pain is a 5/10 at this time and has used the Dilaudid, she refused the Neurontin and [place]. I d/w her about the need to take the medication to transition from IV to tabs and she understands. She is c/o no BM since admission. Objective Last 24 Hour Vital Signs Date Time Temp Pulse Resp B/P (MAP) Pulse Ox O2 Delivery O2 Flow Rate FiO2 07/12/17 08:00 98.2 99 18 112/52 95 Room Air 07/12/17 04:55 97.7 89 20 104/57 97 Room Air 89 07/12/17 04:00 101 07/12/17 01:00 97.2 60 20 102/61 98 Nasal Cannula 2.0 07/12/17 00:00 89 07/11/17 21:15 103 104/61 07/11/17 20:45 97.9 103 20 104/61 96 Room Air 07/11/17 20:00 115 07/11/17 17:09 123 106/58 07/11/17 16:00 116 07/11/17 16:00 98.1 115 20 106/58 95 Room Air 07/11/17 14:03 121 108/85 07/11/17 13:44 130 118/56 07/11/17 12:00 97.1 67 21 118/56 91 Room Air 07/11/17 12:00 132 07/11/17 08:57 140 111/67 Laboratory Tests 07/12/17 06:34: White Blood Count 11.0H, Red Blood Count 2.89L, Hemoglobin 8.9L, Hematocrit 28.1L, Mean Corpuscular Volume 97, Mean Corpuscular Hemoglobin 30.7, Mean Corpuscular Hemoglobin Concent 31.7L, Red Cell Distribution Width 15.2H, Platelet Count 152, Mean Platelet Volume 8.1, Neutrophils (%) (Auto) 70.9, Lymphocytes (%) (Auto) 14.8L, Monocytes (%) (Auto) 9.7, Eosinophils (%) (Auto) 3.9H, Basophils (%) (Auto) 0.7, Prothrombin Time 9.7, Prothromb Time International Ratio 0.9, Sodium Level 136, Potassium Level 4.2, Chloride Level 100, Carbon Dioxide Level 29, Anion Gap 8, Blood Urea Nitrogen 66H, Creatinine 1.7H, Estimat Glomerular Filtration Rate , Glucose Level 142H, Calcium Level 9.6 , Troponin I 0.013 Height (Feet): 5 Height (Inches): 4.00 Weight (Pounds): 173 General Appearance: no apparent distress, alert EENT: PERRL/EOMI, normal ENT inspection Neck: normal alignment, supple Cardiovascular: normal rate, regular rhythm Respiratory/Chest: lungs clear, normal breath sounds Abdomen: non tender, soft Extremities: other - right knee bandages noted tenderness to plaption Edema: trace edema Neurologic: abnormal gait, oriented x 3 Skin: warm/dry MIGUEL BOWERS PAny Jul 12, 2017 08:51
[2017-07-12] MEDS ORDERED: Relistor 12mg/0.6ml Vial SUBQ SCH (09:00)
[2017-07-12] MEDS: Estradiol Vaginal Cr 42.5 Gm Tube VAGIN SCH (09:00)
[2017-07-12] MEDS ORDERED: Lactulose 20gm/30ml UDC ORAL PRN (09:00)
[2017-07-12] MEDS: Carvedilol 6.25mg Tab ORAL SCH ×2 (09:02→21:20)
[2017-07-12] MEDS: Furosemide 40mg tab ORAL SCH (09:04)
[2017-07-12] MEDS: valACYclovir HCL 500mg tab ORAL SCH (09:05)
[2017-07-12] MEDS ORDERED: Lactulose 20gm/30ml UDC ORAL ONE (11:00)
[2017-07-12 11:55] VITALS: BP 102/52
[2017-07-12] MEDS ORDERED: Enoxaparin 80mg Inj SUBQ SCH (14:00)
[2017-07-12 16:00] VITALS: BP 107/57
[2017-07-12 20:00] VITALS: BP 112/54
[2017-07-12] MEDS: Spironolactone 50mg tab ORAL SCH (21:20)
[2017-07-13] VITALS: BP 146/62
--- NOTE | 2017-07-13 02:00 | Progress Note ---
DATE: 07/12/2017 CARDIOLOGY PROGRESS NOTE SUBJECTIVE: The patient has no chest pain or shortness of breath. She is ambulating with an assist with a walker. She has converted to sinus rhythm with frequent ventricular ectopic beats. OBJECTIVE: VITAL SIGNS: Blood pressure 104/57, pulse 89, respiratory rate 20, and afebrile. NECK: Supple. LUNGS: Clear. CARDIAC: Regular rhythm and rate. Normal S1 and S2. Frequent ectopic beats. ABDOMEN: Soft. EXTREMITIES: Trace edema. LABORATORY DATA: White count 11 and hemoglobin 8.9. Potassium 4.2. Troponin 0.013. BUN 66 and creatinine 1.7. IMPRESSION: 1. Troponin leak due to rapid atrial fibrillation. 2. Paroxysmal atrial fibrillation, now in sinus rhythm. 3. Nonsustained ventricular ectopy. 4. Acute on chronic diastolic congestive heart failure. 5. Cardiomyopathy status post right total knee replacement. PLAN: 1. Continue beta-edwar with titration. 2. DVT prophylaxis. 3. Antiplatelet therapy with aspirin. 4. Cautious diuresis. Francois Cooper M.D. DR: FERMIN JOB#: [id number] CC:
[2017-07-13] MEDS: Hydromorphone 0.5mg/0.5ml inj IVP PRN (02:19)
[2017-07-13] MEDS: Norco 10mg/325mg tab ORAL SCH ×2 (03:00→10:36)
[2017-07-13 04:00] VITALS: BP 116/57
[2017-07-13 05:38] LABS: BASOPHILS % (AUTO) 0.8 % (0.0-2.0); EOSINOPHILS % (AUTO) 4.2 % (0.0-3.0); MEAN CORPUSCULAR HEMOGLOBIN 31.3 PG (27.0-31.0); MEAN CORPUSCULAR HGB CONC 32.2 G/DL (32.0-36.0); MEAN CORPUSCULAR VOLUME 97 FL (80-99); MEAN PLATELET VOLUME 8.4 FL (6.5-10.1); MONOCYTES % (AUTO) 8.8 % (1.0-10.0); NEUTROPHILS % (AUTO) 73.3 % (45.0-75.0); PLATELET COUNT 140 K/UL (150-450); RED BLOOD COUNT 2.72 M/UL (4.20-5.40); RED CELL DISTRIBUTION WIDTH 15.6 % (11.6-14.8); WHITE BLOOD COUNT 9.5 K/UL (4.8-10.8)
[2017-07-13 05:51] LABS: MAGNESIUM 1.8 MG/DL (1.8-2.4)
[2017-07-13 05:53] LABS: ANION GAP 6 mmol/L (5-15); CALCIUM 10.1 MG/DL (8.5-10.1); CARBON DIOXIDE 30 MMOL/L (21-32); CHLORIDE 103 MMOL/L (98-107); CREATININE 1.5 MG/DL (0.55-1.30); POTASSIUM 4.2 MMOL/L (3.5-5.1); SODIUM 139 MMOL/L (136-145)
[2017-07-13 07:59] VITALS: BP 125/54
--- NOTE | 2017-07-13 08:42 | General Progress Note ---
Assessment/Plan Assessment/Plan IMPRESSION cardiomyopathy hypothyroid colon cancer osteoarthritis s/p TKR afib with RVR CRI (bun at 60 baseline) PLAN dc home resume home meds Xarelto 15mg bid Eads PRN follow up with ortho and cards impression, plan, and exam edited and reviewed in detail care discussed with RN Subjective Allergies: Coded Allergies: SULFA (SULFONAMIDE ANTIBIOTICS) (Verified Allergy, Severe, SWELLING, HIVES , 07/08/17) AMOXICILLIN (Verified Adverse Reaction, Severe, ANAPHYLACTIC REACTION , ) Uncoded Allergies: VICARIL (Adverse Reaction, Severe, BODY REJECTS, 07/08/17) Subjective converted to NSR care noted d/w RN wants to go home Objective Last 24 Hour Vital Signs Date Time Temp Pulse Resp B/P (MAP) Pulse Ox O2 Delivery O2 Flow Rate FiO2 07/13/17 07:59 97.9 76 18 125/54 97 Room Air 07/13/17 04:00 97.7 75 19 116/57 93 Room Air 07/13/17 04:00 73 07/13/17 00:00 97.0 91 18 146/62 100 Nasal Cannula 2.0 07/13/17 00:00 82 07/12/17 21:20 82 112/54 07/12/17 20:00 81 07/12/17 20:00 97.9 82 18 112/54 92 Room Air 07/12/17 16:00 88 07/12/17 16:00 98.4 87 20 107/57 99 Room Air 07/12/17 12:00 111 07/12/17 11:55 98.3 90 20 102/52 97 Room Air 07/12/17 09:02 99 112/52 Intake and Output 07/13/17 07/14/17 19:00 07:00 Intake Total 240 ml Balance 240 ml Intake Oral 240 ml Laboratory Tests 07/13/17 04:45: White Blood Count 9.5, Red Blood Count 2.72L, Hemoglobin 8.5L, Hematocrit 26.4L , Mean Corpuscular Volume 97, Mean Corpuscular Hemoglobin 31.3H, Mean Corpuscular Hemoglobin Concent 32.2, Red Cell Distribution Width 15.6H, Platelet Count 140L, Mean Platelet Volume 8.4, Neutrophils (%) (Auto) 73.3, Lymphocytes (%) (Auto) 13.0L, Monocytes (%) (Auto) 8.8, Eosinophils (%) (Auto) 4.2H, Basophils (%) (Auto) 0.8, Prothrombin Time 10.0, Prothromb Time International Ratio 1.0, Sodium Level 139, Potassium Level 4.2, Chloride Level 103, Carbon Dioxide Level 30, Anion Gap 6, Blood Urea Nitrogen 61H, Creatinine 1.5H, Estimat Glomerular Filtration Rate , Glucose Level 122H, Calcium Level 10.1, Magnesium Level 1.8, Pro-B-Type Natriuretic Peptide 1814H Height (Feet): 5 Height (Inches): 4.00 Weight (Pounds): 173 Objective WDWN NAD clear breath sounds bilaterally without rhonchi or wheeze S1S2 RRR controlled without MRG NABS nontender no HSM no CCE nonfocal CARITO POLANCO Jul 13, 2017 08:42
[2017-07-13] MEDS: Aspirin Baby 81mg ORAL SCH ×2 (09:00→09:58)
[2017-07-13] MEDS: Estradiol Vaginal Cr 42.5 Gm Tube VAGIN SCH (09:42)
[2017-07-13 09:58] VITALS: BP 125/54
[2017-07-13] MEDS: Furosemide 40mg tab ORAL SCH (09:58)
[2017-07-13] MEDS: valACYclovir HCL 500mg tab ORAL SCH (09:58)
[2017-07-13] MEDS: Carvedilol 6.25mg Tab ORAL SCH (09:58)
[2017-07-13] MEDS ORDERED: ELIQUIS2.5 MG PO ×2 (11:39→11:46)
[2017-07-13] MEDS ORDERED: PERCOCET 10-321 EACH ORAL ×2 (11:39→11:45)
[2017-07-13] MEDS ORDERED: RELISTOR150 MG PO ×2 (11:44→11:46)
[2017-07-13] MEDS: Norco 7.5mg/325mg tab ORAL PRN (12:49)
--- NOTE | 2017-07-13 19:15 | Progress Note ---
DATE: 07/13/2017 CARDIOLOGY PROGRESS NOTE SUBJECTIVE: The patient remains in sinus rhythm with occasional premature ventricular contractions. She is on full anticoagulation now for cardioembolic prophylaxis. The patient is on beta-edwar therapy with decreased dosing from admission and this has resulted in improved control of her arrhythmias. OBJECTIVE: VITAL SIGNS: Blood pressure 125/54, pulse 76, respirations 18, and afebrile. NECK: Supple. LUNGS: Clear. CARDIAC: Regular rhythm and rate. Normal S1 and S2. ABDOMEN: Soft. EXTREMITIES: Trace edema. LABORATORY DATA: White count 9.5 and hemoglobin 8.5. Pro-natriuretic peptide 1800. BUN 61 and creatinine 1.5. IMPRESSION: 1. Paroxysmal atrial fibrillation. 2. Status post right total knee replacement. 3. Hypertensive cardiomyopathy. 4. Acute and chronic diastolic congestive heart failure. 5. Acute on chronic renal insufficiency. PLAN: 1. Continue beta-edwar at current dosing. 2. Maintain Xarelto for cardioembolic prophylaxis, 20 mg daily is adequate. 3. Titrate diuretic therapy. 4. Outpatient cardiovascular followup with Dr. Roche. I spoke with him on the phone and he is aware of hospital course. Diuretic doses will be adjusted based on his assessment as well as beta-blockade and continued long-term anticoagulation. Francois Cooper M.D. DR: FERMIN JOB#: [id number] CC:
--- NOTE | 2017-07-14 09:46 | Diagnostic Imaging Report ---
APPROVED REPORT CPT Code: 25881 Present Symptoms Lower Extremity Pain: Bilateral Comments: Hx of Post op right knee BILATERAL: Imaging reveals a patent deep venous system bilaterally. There is no evidence of thrombus within the femoral, popliteal or tibial segments. The greater saphenous veins are also within normal limits. Doppler indicates normal spontaneous flow within these segments.
[2017-07-14] MEDS ORDERED: Relistor 12mg/0.6ml Vial SUBQ SCH (12:00)
--- NOTE | 2017-07-15 13:47 | Discharge Summary ---
Discharge Summary Hospital Course Date of Admission Jul 09, 2017 at 07:33 Date of Discharge Jul 13, 2017 at 13:05 Admitting Diagnosis Right knee end-stage osteoarthritis with valgus deformity Reason for Hospitalization: elective surgery HPI Lilliana Vieyra is a 72 year old female who was admitted on Jul 09, 2017 at 07: 33 for right knee end-stage osteoarthritis with valgus deformity Patient was admitted for elective surgery Consultations dr Pal- Procedures s/p Right total knee replacement, modifier 22 secondary to difficulty of the valgus deformity. by Gonzales Langley M.D. Hospital Course s/p surgery course of recovery uneventful initially IVF hydration pain management PT eval and Rx OOB as tolerated IS while in the bed wound care DVT prophayxlis tolerated diet a/emetic prn voided freely bowel regimen instituted medical management of cardiomyopathy resumed continue thyroid replacement monitor HH count, no need for transfusion venous Duplex BLE negative patient was stabel for dc home and fup as outpatient with surgeon as advised DISCHARGE DIAGNOSIS 1.Right knee end-stage osteoarthritis with valgus deformity. 2/ s/p Right total knee replacement, modifier 22 secondary to difficulty of the valgus deformity. 3. colon Ca 4. cardiomyopathy 5. Hypothyroidism Discharge Medications Continued Medications: Apixaban (Eliquis) 2.5 Mg Tablet 2.5 MG PO BID, #60 TAB Methylnaltrexone [place] (Relistor) 150 Mg Tablet 150 MG PO DAILY, #60 TAB Oxycodone Hcl/Acetaminophen 10-325 Mg Tablet (Percocet 10-325 Mg Tablet*) 1 Each Tablet 1 TAB ORAL Q4H PRN for For Pain, #60 TAB Discharge Condition Upon Discharge: stable Discharge Disposition Patient was discharged to Home () Discharge Diagnoses: Discharge Instructions Discharge Instructions Special Instructions I have been assigned to complete a D/C Summary on this account. I was not involved in the patient management Lauren Good NP (Vanchtein) Jul 15, 2017 13:47
--- NOTE | 2017-07-15 13:58 | Cardiology Report ---
APPROVED REPORT EXAM: Two-dimensional and M-mode echocardiogram with Doppler and color Doppler. INDICATION Arrhythmia M-Mode DIMENSIONS IVSd1.0 (0.7-1.1cm)Left Atrium (MM)3.1 (1.6-4.0cm) LVDd4.6 (3.5-5.6cm)Aortic Root2.5 (2.0-3.7cm) PWd1.6 (0.7-1.1cm)Aortic Cusp Exc.1.7 (1.5-2.0cm) LVDs2.6 (2.5-4.0cm) PWs2.1 cm Normal left ventricular chamber size, systolic function and wall motion. Left ventricular ejection fraction estimated to be 60 %. Mild left ventricular hypertrophy. Anterior Echo-free space, may be due to pericardial fat or effusion. Mild left atrial enlargement. Right atrial size at upper limits of normal. Right ventricular chamber size is within normal limits. Focal aortic valve sclerosis with adequate cusp excursion. Thickened mitral valve leaflets with normal excursion. Mitral annulus and aortic root calcification. Pulmonic valve not well visualized. Normal tricuspid valve structure. IVC measure 2.4 cm with physiologic collapse suggestive of mildly elevated RAP. A color flow and spectral Doppler study was performed and revealed: Trace aortic regurgitation. Trace mitral regurgitation. Can not determine left ventricular diastolic function by mitral diastolic velocities due to atrial fibrillation. Mild tricuspid regurgitation. Tricuspid systolic velocities suggests peak right ventricular systolic pressure of 48 mmHg, consistent with moderate pulmonary hypertension.
== END 2017-07-13 13:05 | disposition home or self-care (01) | DRG 469 ==
LOC: SDSOVERFLO 07:33 → 2E 15:00
PROC: 0SRC069 Replacement of Right Knee Joint with Oxidized Zirconium on Polyethylene Synthetic Substitute, Cemented, Open Approach (ICD-10-PCS; principal; 2017-07-09 09:00)
DX: M17.11 Unilateral primary osteoarthritis, right knee (principal); I50.33 Acute on chronic diastolic (congestive) heart failure; I42.9 Cardiomyopathy, unspecified; I48.0 Paroxysmal atrial fibrillation; I13.0 Hypertensive heart and chronic kidney disease with heart failure and stage 1 through stage 4 chronic kidney disease, or unspecified chronic kidney disease; M21.061 Valgus deformity, not elsewhere classified, right knee; N18.9 Chronic kidney disease, unspecified; E03.9 Hypothyroidism, unspecified; Z85.038 Personal history of other malignant neoplasm of large intestine; G89.18 Other acute postprocedural pain
CPT/HCPCS: 36415; 80048; 80053; 83735; 83880; 84484; 85007; 85025; 85610; 86850; 86900; 86901; 86920; 87081; 93005; 93306; 93970; 94003; 94150; J2405; S0077

== ENCOUNTER 2017-11-05 06:17 | Inpatient (IN) | payer BC, MEDICARE ==
[~2017-11-05] VITALS: Ht 162.6 cm; Wt 78.9 kg
[2017-11-05] VITALS (18 sets, daily range): BP systolic 117–149; BP diastolic 53–80
[~2017-11-05 06:17] MED LIST changes: +ELIQUIS2.5 MG PO; +PERCOCET 10-321 EACH ORAL; +RELISTOR150 MG PO
[2017-11-05] MEDS ORDERED: Ropivacaine 5mg/ml Vial 30ml INJ ONE (07:06)
[2017-11-05] MEDS ORDERED: NeoSporin Gu Irrig 1ml Amp IRRIG ONE ×2 (07:06→09:32)
[2017-11-05] MEDS ORDERED: Bacitracin 50000 Units Vial ONE ×2 (07:06→09:32)
[2017-11-05] MEDS ORDERED: Vancomycin 1gm inj IVPB ONE (07:35)
--- NOTE | 2017-11-05 07:41 | Pre-Procedure Note/Attestation ---
Pre-Procedure Note/Attestation Complete Prior to Procedure Procedure Narrative: knee replacement Indications for Procedure Pre-Operative Diagnosis: knee arthritis Attestation I attest that I discussed the nature of the procedure; its benefits; risks and complications; and alternatives (and the risks and benefits of such alternatives ), prior to the procedure, with the patient (or the patient's legal international account representative). I attest that, if there was a reasonable possibility of needing a blood transfusion, the patient (or the patient's legal international account representative) was given the [facility] standardized written summary, pursuant to the Alfredo Emerson Blood Safety Act ([place] Health and Safety Code # 1645, as amended). I attest that I re-evaluated the patient just prior to the surgery and that there has been no change in the patient's H&P, except as documented below: SIMONA CHARLES Nov 05, 2017 07:41
[2017-11-05] MEDS ORDERED: Morphine Sulfate 4mg/ml Inj IVP PRN (07:45)
[2017-11-05] MEDS ORDERED: Morphine Sulfate 2mg/ml Inj IVP PRN ×2 (07:45)
[2017-11-05] MEDS ORDERED: fentaNYL 100 mcg/2 mL IV ONE (08:00)
[2017-11-05] MEDS ORDERED: LR 1000ml ONE (08:00)
[2017-11-05] MEDS ORDERED: Sterile Water Irrig 1000ml IRRIG ONE (08:00)
[2017-11-05] MEDS ORDERED: Midazolam 2mg/2ml Inj ONE (08:00)
[2017-11-05] MEDS ORDERED: NS Irrig 2000ml IRRIG ONE (08:00)
[2017-11-05] MEDS ORDERED: NS Irrig 1000ml ONE (08:00)
[2017-11-05] MEDS ORDERED: Propofol 200mg/20ml IV ONE (08:00)
[2017-11-05] MEDS ORDERED: LR 1000ml 1,000 ML IVLG SCH (09:19)
--- NOTE | 2017-11-05 09:19 | Anethesia Preoperative Eval ---
Anesthesia Pre-op PMH/ROS General Date of Evaluation: Nov 05, 2017 Time of Evaluation: 07:20 Anesthesiologist: Daljit ASA Score: ASA 3 Mallampati Score Class I : Soft palate, uvula, fauces, pillars visible Class II: Soft palate, uvula, fauces visible Class III: Soft palate, base of uvula visible Class IV: Only hard plate visible Mallampati Classification: Class II Surgeon: Shivam Diagnosis: L knee DJD Surgical Procedure: L knee arthroplasty Anesthesia History: none Family History: no anesthesia problems Allergies: Coded Allergies: SULFA (SULFONAMIDE ANTIBIOTICS) (Verified Allergy, Severe, SWELLING, HIVES , 07/08/17) AMOXICILLIN (Verified Adverse Reaction, Severe, ANAPHYLACTIC REACTION , ) Uncoded Allergies: VICARIL (Adverse Reaction, Severe, BODY REJECTS, 07/08/17) Medications: see eMAR Past Medical History Cardiovascular: Reports: arrhythmia - AF with rapid vent response, other - h/o CHF Pulmonary: Denies: asthma, COPD, TAMIE, other Gastrointestinal/Genitourinary: Reports: GERD, CRI Neurologic/Psychiatric: Reports: depression/anxiety, other - chronic pain, Denies: dementia, CVA, TIA Endocrine: Reports: hypothyroidism, Denies: DM, steroids, other Hematology/Immune: Reports: anemia - mild, Denies: DVT, bleeding disorder, other Musculoskeletal/Integumentary: Reports: DJD, Denies: OA, RA, DDD, edema, other PMH Narrative: as above PSxH Narrative: R knee arthroplasty, hysterectomy Anesthesia Pre-op Phys. Exam Physician Exam Last Vital Signs Date Time Temp Pulse Resp B/P (MAP) Pulse Ox O2 Delivery O2 Flow Rate FiO2 11/05/17 07:43 98.1 78 20 149/72 100 Room Air Constitutional: NAD Neurologic: CN 2-12 intact Cardiovascular: no M/R/G, other - Sinus arrhytmia Respiratory: CTA Gastrointestinal: S/NT/ND Airway Exam Mallampati Score: Class II MO: limited Neck: stiff Teeth: intact Dentures: no upper, no lower Anesthesia Pre-op A/P Labs see chart Studies Pre-op Studies: EKG - NSR, CXR - WNL Risk Assessment & Plan Assessment: ASA 3 Plan: SAB vs GA L femoral nerve block for p/op pain control Status Change Before Surgery: No Pre-Antibiotics Drug: Vancomycin 1gr. Given Within 1 Hr of Incision: Yes Time Given: 08:36 HONG VASQUEZ M.D. Nov 05, 2017 09:19
[2017-11-05] MEDS ORDERED: DiphenhydrAMINE 50mg/ml Inj IVP PRN (09:30)
[2017-11-05] MEDS ORDERED: Ketorolac 30mg Inj IV PRN (09:30)
--- NOTE | 2017-11-05 10:36 | Diagnostic Imaging Report ---
Indication: Pain 3 views of the left knee were obtained. Findings: Bones are osteopenic. There is moderate narrowing of the lateral compartment of the knee with a moderate osteophyte formation. Hypertrophic spurs demonstrated in all 3 compartments of the knee. IMPRESSION: Moderate arthrosis
--- NOTE | 2017-11-05 10:41 | Immediate Post-Op Evaluation ---
Immediate Post-Op Evalulation Immediate Post-Op Evalulation Procedure: L knee arthroplasty Date of Evaluation: Nov 05, 2017 Time of Evaluation: 10:39 IV Fluids: 800 Blood Products: Albumin 250 Estimated Blood Loss: 100 Urinary Output: 200 Blood Pressure Systolic: 124 Blood Pressure Diastolic: 64 Pulse Rate: 72 Respiratory Rate: 20 O2 Sat by Pulse Oximetry: 99 Temperature (Fahrenheit): 97.6 Pain Score (1-10): 2 Nausea: No Vomiting: No Complications none Patient Status: awake, patent, none Hydration Status: adequate Drug: Vancomycin zoyarHONG FUNEZ M.D. Nov 05, 2017 10:41
[2017-11-05] MEDS: Hydromorphone 0.5mg/0.5ml inj IVP PRN ×3 (11:34→12:22)
--- NOTE | 2017-11-05 11:42 | Diagnostic Imaging Report ---
Indication: Reason For Exam: POST-OP Findings: 2 views of the left knee were obtained postoperatively. The cemented total knee arthroplasty is demonstrated. The alignment and position of the prosthetic is satisfactory. There are no abnormal interface lucencies or evidence of an acute fracture. Surgical skin camryn are noted. There is soft tissue swelling and air indicative of the recent surgery. Impression: Status post cemented left total knee arthroplasty. No radiographic evidence for complications in the immediate postop period.
[2017-11-05] MEDS ORDERED: UBIQUINOL100 MG PO (12:03)
[2017-11-05] MEDS ORDERED: SENNA PLUS TAB1 EAC1 PO (12:04)
[2017-11-05] MEDS ORDERED: VIT B6 PO (12:06)
[2017-11-05] MEDS ORDERED: D5 1/2NS w/KCl 20mEq 1,000 ML IV SCH (15:00)
--- NOTE | 2017-11-05 15:21 | Cardiology Progress Note ---
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 verbal communication with me last week reported hs fo chf per chart hs fo cm epr chart hypothyroid hs of gout hs of colon cancer multiple drug allergies erythromycin , sulfa codeine , amoxicillin , flu shot resuem coreg decrease ivf stop as soon as start pos fluei dn na restricted diet [id number] Objective Last 24 Hour Vital Signs Date Time Temp Pulse Resp B/P (MAP) Pulse Ox O2 Delivery O2 Flow Rate FiO2 11/05/17 12:38 97.6 71 18 147/66 100 Nasal Cannula 2.0 11/05/17 12:25 97.6 11/05/17 12:22 97.6 11/05/17 12:20 7 18 141/69 100 Nasal Cannula 2.0 11/05/17 12:15 97.6 11/05/17 12:10 79 18 134/61 100 Nasal Cannula 2.0 11/05/17 12:04 97.6 11/05/17 12:00 71 16 129/58 100 Nasal Cannula 2.0 11/05/17 12:00 97.6 11/05/17 11:55 71 17 122/54 100 Nasal Cannula 2.0 11/05/17 11:45 72 18 124/55 100 Nasal Cannula 2.0 11/05/17 11:34 69 20 122/56 100 Nasal Cannula 2.0 11/05/17 11:14 70 20 120/55 100 Nasal Cannula 2.0 11/05/17 11:08 70 20 120/59 100 Nasal Cannula 2.0 11/05/17 10:55 71 20 117/56 100 Nasal Cannula 2.0 11/05/17 10:47 68 20 118/53 100 Nasal Cannula 2.0 11/05/17 10:41 69 20 124/55 100 Nasal Cannula 2.0 11/05/17 10:41 207.7 72 20 99 11/05/17 10:36 97.6 79 20 124/61 100 Simple Mask 8.0 11/05/17 07:43 98.1 78 20 149/72 100 Room Air BRISEYDA RAMIREZ Nov 05, 2017 15:20
[2017-11-05] MEDS: Clindamycin 600mg 50 ML IV SCH ×2 (15:38→21:13)
[2017-11-05] MEDS ORDERED: Sennosides 8.6mg ORAL PRN (15:45)
[2017-11-05] MEDS ORDERED: Chloraseptic Spray 20mL Bottle ORAL PRN (20:00)
[2017-11-05] MEDS ORDERED: Milk of Magnesia 30ml Ud ORAL PRN (20:00)
[2017-11-05] MEDS: Spironolactone 50mg tab ORAL SCH (21:13)
[2017-11-05] MEDS: Enoxaparin 40mg Inj SUBQ SCH (21:18)
[2017-11-06] VITALS (7 sets, daily range): BP systolic 118–143; BP diastolic 53–73
--- NOTE | 2017-11-06 02:30 | Consultation ---
DATE OF CONSULTATION: 11/05/2017 NOTE: POOR AUDIO CARDIOLOGY CONSULTATION CONSULTING PHYSICIAN: Daryl Acevedo M.D. REFERRING PHYSICIAN: Gonzales Langley M.D. REASON FOR REFERRAL: Postoperative cardiac followup. HISTORY OF PRESENT ILLNESS: This is a 72-year-old female with history of multiple medical problems. The patient has undergone a total knee replacement today and this consultation is requested for cardiac management. The patient has had a history of supraventricular tachycardia that was recurrent previously as well as congestive heart failure when she was previously overhydrated. She does carry a diagnosis of cardiomyopathy. For her surgery, she underwent spinal anesthesia today. She tolerated the procedure well. She denies any chest pain right now. There is no any shortness of breath. No palpitations. No dizziness in lying position. She uses one pillow usually. There is no PND and no orthopnea. PAST MEDICAL HISTORY: According to the chart by Dr. Meagan Peralta indicated the patient's past medical history is positive for history of first-degree AV block, anemia, hypokalemia, cardiomyopathy, colon cancer, congestive heart failure, systemic hypertension, hypothyroidism, gout, skin cancer, and cystocele as much as I can tell. She has had a hysterectomy and right knee replacement. MEDICATIONS: Her medications listed include potassium 25 mEq mg once daily, Lasix 40 mg daily, thyroid medication 90 daily, Coreg 3.125 mg once a day, pravastatin 20 mg daily, Atacand 16 mg every morning, CoQ10 100 mg per day, PreserVision two tablets daily, estradiol cream 3 g two applications on her inner thigh per day, testosterone cream one application to the inner thigh per day, Aldactone 100 mg everyday, valacyclovir 500 mg a day, allopurinol 300 mg a day, gabapentin tablets per day as needed for facial spasm, multivitamins 50,000 units per week, Senna 5 tablets one tablet at nighttime, Biotin 1000 mg three tablets at nighttime, and melatonin 3 tablets 3 mg at nighttime as well. ALLERGIES: She is allergic to sulfa and amoxicillin. SOCIAL HISTORY: No alcohol. No tobacco. No drugs. She works as a cattle producers. FAMILY HISTORY: Stomach cancer in grandfather, prostate cancer in father, kidney cancer in brother, CLL in mother, and MO in mother as well. REVIEW OF SYSTEMS: GASTROINTESTINAL: She denies any nausea or vomiting. She last ate last night. GENITOURINARY: She has Fair catheter in place. PULMONARY: Denies any coughing or wheezing at this time, although she indicates she had a flu back on Thanksgiving and subsequently sometime later with recurrence of symptoms, but not recently. CONSTITUTIONAL: Negative. NEUROLOGICAL: Negative. PHYSICAL EXAMINATION: GENERAL: Shows an elderly female, in no respiratory distress. She is lying down approximately 10 degrees of head of bed elevation. NECK: Supple. No jugular venous distention. LUNGS: Appear to be clear to auscultation and percussion. CARDIAC: S1 is normal. S2 is normal. Regular rate and rhythm. No heaves, thrills, or gallops noted. ABDOMEN: Soft, obese. Positive bowel sounds. EXTREMITIES: There is no edema. Left leg is in a CPM machine and she is able to move her toes without any difficulty and she has pneumatic compression stockings on the right leg. LABORATORY AND DIAGNOSTIC DATA: Her laboratory values available from preop with a BUN of 63 and creatinine 1.3. Previously, she had white count of 8, hemoglobin 10.9, and a platelet count of 223. INR of 1.0. Preoperative EKG has been performed, unfortunately very difficult to read, appears to be sinus, possible leftward axis, delay in R-wave progression, does not appear to have any significant T-wave changes, however, again it is a poor quality faxed report. Chest x-ray, reportedly, no cardiopulmonary disease processes. ASSESSMENT AND PLAN: 1. Postoperative day #0 of total knee replacement. 2. Reported history of supraventricular tachycardia per my discussion with Dr. Roche, the patient's usual underwear hemmer. 3. History of anemia. 4. Cardiomyopathy history. 5. Colon cancer history. 6. Hypothyroidism history. 7. Congestive heart failure history. This patient was seen in cardiac consultation. The patient has received some intravenous fluids. In fact, the intraoperative intake and outputs indicate the patient has about 1100 or so of fluids in and approximately 300 fluids out. I will decrease the IV fluids that she is receiving right now to approximately 40 mL/hour and she should be discontinued off the IV fluids once she does start p.o., and of course, she should be on a fluid-restricted diet based on the reported history of heart failure and cardiomyopathy as is available in the patient's chart. The patient's blood pressure at the time of having seen by her primary care physician was 92/68 with a heart rate of 87. This would be in September 2017. Daryl Acevedo M.D. DR: NORBERT JOB#: [id number] CC:
[2017-11-06] MEDS: Clindamycin 600mg 50 ML IV SCH ×2 (03:06→08:39)
[2017-11-06] MEDS: oxyCODONE 5mg IR tab ORAL PRN ×3 (03:27→19:04)
--- NOTE | 2017-11-06 03:30 | Consultation ---
DATE OF CONSULTATION: 11/05/2017 CONSULTING PHYSICIAN: Francois Cruz M.D. REFERRING PHYSICIAN: Gonzales Langley M.D. REASON FOR CONSULTATION: Pain consult. HISTORY OF PRESENT ILLNESS: Dear Dr. Langley, Thank you kindly for consulting me to evaluate and render an opinion as to how to proceed in the management of the patient's acute postoperative left knee pain after her left total knee arthroplasty today. The patient was complaining of severe pain after her surgery. You consulted me for acute pain consultation. I saw the patient at the bedside with her . I discussed the case with the hospital pharmacist, Francia, along with the floor nurse, RN, Palma, and the recovery room nurse, RN, Evelyn. I performed a detailed history and physical examination. I reviewed the medical record in detail including advance directives. PAST MEDICAL HISTORY: 1. Acute postoperative left knee pain, status post left total knee arthroplasty by Dr. Gonzales Langley in October 2017. 2. Elderly age. 3. Hypertension. 4. Hypothyroidism. 5. Gout. 6. First-degree AV block. 7. Chronic hypokalemia. 8. Cardiomyopathy. 9. History of CHF. 10. Moderate obesity. PAST SURGICAL HISTORY: Hysterectomy and right knee total replacement. MEDICATIONS AT HOME: Potassium, Lasix, spironolactone, valacyclovir, allopurinol, thyroid hormone creams, carvedilol, Zocor, candesartan, vitamins, and melatonin. ALLERGIES: Sulfa and amoxicillin. FAMILY HISTORY: Stomach cancer, kidney cancer, and coronary artery disease. REVIEW OF SYSTEMS: Per Dr. Acevedo. PHYSICAL EXAMINATION: VITAL SIGNS: Age 72. Height 5 feet 4 inches. Weight 181 pounds. Afebrile. Pulse 84, respirations 18, blood pressure 122/73, and oxygen saturation 98% on room air. GENERAL: Alert and oriented x3. HEENT: External ocular muscles intact. Pupils equal, round, and accommodative. CHEST: Clear to auscultation. ABDOMEN: Moderately obese. Positive bowel sounds. BREASTS: Deferred. GENITOURINARY: Deferred. EXTREMITIES: Moving all toes x10. Pain with flexion and extension of the left knee. Dressing appears clean and dry. NEUROLOGIC: A detailed neurologic exam per Dr. Langley. DIAGNOSTIC TESTING: Shows a 12-lead EKG, left axis deviation, left bundle-branch block. Heart rate 68. Preoperative chest x-ray on 10/21/2017, no acute cardiopulmonary disease. LABORATORY STUDIES: On 10/21/2017 showed glucose 103, BUN 63, elevated, creatinine 1.3, sodium 136, potassium 4.5, chloride 102, bicarb 28, and calcium 11. Total protein 6.5. Albumin 4.4. Total bilirubin 0.4. Alkaline phosphatase 76. AST 21, ALT 20. PTT 24. White count 8, hematocrit 34, and platelets 223,000. INR 1.0. IMPRESSION: 1. Acute postoperative left knee pain, status post left total knee arthroplasty by Dr. Gonzales Langley in October 2017. 2. Elderly age. 3. Hypertension. 4. Hypothyroidism. 5. Gout. 6. First-degree atrioventricular block. 7. Chronic hypokalemia. 8. Cardiomyopathy. 9. History of congestive heart failure. 10. Moderate obesity. TREATMENT AND RECOMMENDATIONS: I have ordered the following analgesic plan to help with pain control postoperatively. After discussion with the pharmacist and nursing and recovery room teams, I had simplified her analgesic regimen to the following. She has responded well to oxycodone in the past and I have ordered oxycodone instant release 10 mg q.3 hours p.r.n. for mild pain. I have ordered a breakthrough dose of Dilaudid 1 mg subcutaneously every three hours p.r.n. for severe pain. Dr. Langley has placed the patient on Lovenox 40 mg subcutaneously nightly for DVT prophylaxis. I have placed the patient on Protonix 40 mg nightly for GI ulcer prophylaxis along with p.r.n. dose of Mylanta 30 mL q.6 hours in case of any GERD symptom exacerbation. I have ordered Chloraseptic spray to help with any sore throat complaints. The patient has multiple medical issues including hypertension. I will defer this management to Dr. Acveedo including follow up with her preoperative renal insufficiency laboratory studies. She will have laboratories repeated in the morning. I have ordered Benadryl 25 mg q.6 hours in case of any itching complaints. I have ordered Zofran 4 mg intravenously every 4 hours as an antiemetic. The patient does state that she gets constipated with pain medications. I will place her on Colace and Senokot b.i.d. I have asked the nursing at the bedside. The patient does respond well to milk of magnesia as well, which is available daily p.r.n. Incentive spirometer has been ordered at the bedside to encourage good pulmonary toilet. Francois Cruz M.D. DR: SOCORRO JOB#: [id number] CC:
[2017-11-06 07:53] LABS: BASOPHILS % (AUTO) 0.6 % (0.0-2.0); EOSINOPHILS % (AUTO) 1.4 % (0.0-3.0); HEMATOCRIT 28.4 % (37.0-47.0); HEMOGLOBIN 8.9 G/DL (12.0-16.0); LYMPHOCYTES % (AUTO) 9.3 % (20.0-45.0); MEAN CORPUSCULAR VOLUME 93 FL (80-99); MONOCYTES % (AUTO) 9.5 % (1.0-10.0); NEUTROPHILS % (AUTO) 79.1 % (45.0-75.0); PLATELET COUNT 154 K/UL (150-450); RED BLOOD COUNT 3.05 M/UL (4.20-5.40); RED CELL DISTRIBUTION WIDTH 18.5 % (11.6-14.8)
[2017-11-06 08:02] LABS: ANION GAP 9 mmol/L (5-15); BILIRUBIN,TOTAL 0.3 MG/DL (0.2-1.0); BLOOD UREA NITROGEN 63 mg/dL (7-18); CALCIUM 9.6 MG/DL (8.5-10.1); CARBON DIOXIDE 26 MMOL/L (21-32); CHLORIDE 107 MMOL/L (98-107); CREATININE 1.4 MG/DL (0.55-1.30); SODIUM 142 MMOL/L (136-145)
[2017-11-06 08:03] LABS: ALANINE AMINOTRANSFERASE 23 U/L (12-78); ALBUMIN 3.5 G/DL (3.4-5.0); ALBUMIN/GLOBULIN RATIO 1.2 (1.0-2.7); ALKALINE PHOSPHATASE 62 U/L (46-116); ASPARTATE AMINO TRANSFERASE 21 U/L (15-37)
[2017-11-06] MEDS: Docusate 100mg/10ml Liq NG SCH ×2 (08:18→19:03)
[2017-11-06] MEDS: Sennosides 8.6mg ORAL SCH ×2 (08:26→19:03)
[2017-11-06] MEDS: Spironolactone 50mg tab ORAL SCH (08:26)
[2017-11-06] MEDS: Furosemide 40mg tab ORAL SCH (08:27)
[2017-11-06] MEDS: Irbesartan 150mg tablet ORAL SCH (08:27)
--- NOTE | 2017-11-06 08:29 | 48 Hour Post Anesthesia Eval ---
Post Anesthesia Evaluation Procedure: L knee arthroplasty Date of Evaluation: Nov 06, 2017 Time of Evaluation: 08:28 Blood Pressure Systolic: 119 0: 64 Pulse Rate: 64 Respiratory Rate: 20 Temperature (Fahrenheit): 97.6 O2 Sat by Pulse Oximetry: 98 Airway: patent Nausea: No Vomiting: No Pain Intensity: 3 Hydration Status: adequate Cardiopulmonary Status: stable Mental Status/LOC: patient returned to baseline Follow-up Care/Observations: n/a Post-Anesthesia Complications: none Follow-up care needed: N/A HONG VASQUEZ M.D. Nov 06, 2017 08:29
[2017-11-06 08:47] LABS: ANION GAP 10 mmol/L (5-15); BLOOD UREA NITROGEN 66 mg/dL (7-18); CARBON DIOXIDE 25 MMOL/L (21-32); CHLORIDE 108 MMOL/L (98-107); CREATININE 1.4 MG/DL (0.55-1.30); SODIUM 143 MMOL/L (136-145)
[2017-11-06 08:48] LABS: CALCIUM 9.6 MG/DL (8.5-10.1)
[2017-11-06] MEDS: valACYclovir HCL 500mg tab ORAL SCH (09:53)
[2017-11-06] MEDS ORDERED: Ketorolac 30mg Inj IV ONE (13:00)
--- NOTE | 2017-11-06 20:01 | Cardiology Progress Note ---
Assessment/Plan Assessment/Plan reported hs of recurrent svt reported hs fo chf per chart hs fo cm per chart resolved per patsy faculty i on call medical assistant hypothyroid hs of gout hs of colon cancer multiple drug allergies erythromycin , sulfa codeine , amoxicillin , flu shot anemia on usual dvt ppx oob ambulate as possible continue to monitor for chf exacerbation monitor for svt recurrence pain managment IS use has sig amout of pain prevent her to walk to day ekg sinus lab in am to monitor for anemia Subjective Cardiovascular: Denies: chest pain, irregular heart rate, lightheadedness, palpitations Respiratory: Denies: shortness of breath Gastrointestinal/Abdominal: Reports: constipated, Denies: abdominal pain Genitourinary: Denies: burning Objective Last 24 Hour Vital Signs Date Time Temp Pulse Resp B/P (MAP) Pulse Ox O2 Delivery O2 Flow Rate FiO2 11/06/17 16:36 98.5 96 20 121/59 98 Room Air 11/06/17 12:05 98.3 20 20 132/53 94 Room Air 11/06/17 10:14 98.0 96 19 143/72 98 Room Air 11/06/17 08:29 207.7 64 20 98 11/06/17 08:28 96 143/72 11/06/17 08:27 143/72 11/06/17 08:14 98.0 96 19 143/72 98 11/06/17 04:06 Room Air 11/06/17 04:05 97.8 88 18 127/62 99 11/06/17 00:10 Room Air 11/06/17 00:09 97.6 70 18 118/73 98 11/05/17 20:16 Room Air 11/05/17 20:15 97.8 75 19 122/80 98 General Appearance: alert Neck: supple Cardiovascular: normal rate, other - ectopies Respiratory/Chest: lungs clear, normal breath sounds Abdomen: normal bowel sounds, non tender, soft Extremities: no swelling Intake and Output 11/05/17 11/06/17 19:00 07:00 Intake Total 1050 ml 1240 ml Output Total 300 ml 1300 ml Balance 750 ml -60 ml Intake Oral 1140 ml IV Total 800 ml 100 ml Other 250 ml Output Urine Total 200 ml 1300 ml Estimated Blood Loss 100 ml # Voids 2 1 Laboratory Tests Test 11/06/17 05:10 White Blood Count 11.0 K/UL (4.8-10.8) H Red Blood Count 3.05 M/UL (4.20-5.40) L Hemoglobin 8.9 G/DL (12.0-16.0) L Hematocrit 28.4 % (37.0-47.0) L Mean Corpuscular Volume 93 FL (80-99) Mean Corpuscular Hemoglobin 29.2 PG (27.0-31.0) Mean Corpuscular Hemoglobin Concent 31.3 G/DL (32.0-36.0) L Red Cell Distribution Width 18.5 % (11.6-14.8) H Platelet Count 154 K/UL (150-450) Mean Platelet Volume 8.4 FL (6.5-10.1) Neutrophils (%) (Auto) 79.1 % (45.0-75.0) H Lymphocytes (%) (Auto) 9.3 % (20.0-45.0) L Monocytes (%) (Auto) 9.5 % (1.0-10.0) Eosinophils (%) (Auto) 1.4 % (0.0-3.0) Basophils (%) (Auto) 0.6 % (0.0-2.0) Prothrombin Time 10.3 SEC (9.30-11.50) Prothromb Time International Ratio 1.0 (0.9-1.1) Sodium Level 143 MMOL/L (136-145) Potassium Level 4.0 MMOL/L (3.5-5.1) Chloride Level 108 MMOL/L (98-107) H Carbon Dioxide Level 25 MMOL/L (21-32) Anion Gap 10 mmol/L (5-15) Blood Urea Nitrogen 66 mg/dL (7-18) H Creatinine 1.4 MG/DL (0.55-1.30) H Estimat Glomerular Filtration Rate mL/min (>60) Glucose Level 139 MG/DL (74-106) H Calcium Level 9.6 MG/DL (8.5-10.1) Total Bilirubin 0.3 MG/DL (0.2-1.0) Aspartate Amino Transf (AST/SGOT) 21 U/L (15-37) Alanine Aminotransferase (ALT/SGPT) 23 U/L (12-78) Alkaline Phosphatase 62 U/L (46-116) Pro-B-Type Natriuretic Peptide 267 pg/mL (0-125) H Total Protein 6.4 G/DL (6.4-8.2) Albumin 3.5 G/DL (3.4-5.0) Globulin 2.9 g/dL Albumin/Globulin Ratio 1.2 (1.0-2.7) BRISEYDA RAMIREZ Nov 06, 2017 20:01
[2017-11-06] MEDS: Enoxaparin 40mg Inj SUBQ SCH (20:22)
--- NOTE | 2017-11-06 23:45 | Operative Note - Dictated ---
DATE OF OPERATION: 11/05/2017 PREOPERATIVE DIAGNOSIS: Left knee end-stage osteoarthritis with deformity. POSTOPERATIVE DIAGNOSIS: Left knee end-stage osteoarthritis with deformity. PROCEDURE: Left total knee replacement with lateral retinacular release, modifier 22 secondary to deformity. SURGEON: Gonzales Langley M.D. FEED ELEVATOR WORKER: Unknown. CHEMICAL RESEARCH TECHNICIAN: Sy. PREOPERATIVE NOTE: A pleasant lady who has a corrected deformity of the knee, valgus deformity. I explained to her the surgery and risks being infection, bleeding, anesthetic risks, failure of the surgery, infection, bleeding, mortality, morbidity from the above, not including the above. The patient agreed and consents were obtained. OPERATIVE ROOM NOTE: Under the benefit of endotracheal intubation, spinal anesthetic, the patient's knee was prepped and draped in an appropriate manner. The patient was given clindamycin as an antibiotic. A midline incision was made, incised through subcutaneous tissue and down through the medial retinaculum and then proceeded to ajit the patella. I removed the osteophytes and then I drilled down the center of the femur on AP and lateral planes sizing up to #9. I then made my anterior cuts, posterior cuts, anterior chamfer and posterior chamfer cuts with respect to the epicondylar axis. I then proceeded to work on the tibia, 2 mm taken off the low side, which is lateral with respect to the mechanical axis. I then made my tibia plateau cut preserving the PCL and then sizing this to be a 10. He had full extension and full flexion and full stability throughout all ranges of motion. I then proceeded to make my lug holes in the femur and my central cuts in the tibia. I worked on the patella shaving off approximately 10 mm off the patella, placing a tri-peg patella on, 29 mm in diameter. I washed the wound copiously. No tourniquet was used and then I proceeded to cement the tibia in, which is a size F tibia femur, 10 mm polyethylene and 29 mm patella. After removing excess cement, I then proceeded to test the range and stability, we had full range and full stability for extension and contraction. I did a lateral retinacular release retinaculum with catgut, subcu tissue with catgut and skin with camryn. The . Estimated blood loss was less than 200 mL, neurovascularly intact in the recovery room. There were no complications. Gonzales Langley M.D. DR: ARTIE JOB#: [id number] CC: REILLY
[2017-11-07] VITALS (17 sets, daily range): BP systolic 91–168; BP diastolic 40–69
--- NOTE | 2017-11-07 00:01 | Progress Note ---
DATE: 11/06/2017 ACUTE PAIN MANAGEMENT PHYSICIAN PROGRESS NOTE MEDICATIONS: Medication administration record reviewed. Medications include Valtrex, Aldactone, Senokot, Pravachol, Chloraseptic, Protonix, Roxicodone, Zofran, milk of magnesia, Avapro, Dilaudid, Lasix, Lovenox, Colace, Benadryl, Catapres, Coreg, allopurinol, Mylanta. LABORATORY STUDIES: From today November 06, 2017 shows white count 11, hematocrit 28, platelets 154. Sodium 143, potassium 4.0, chloride 108, bicarb 25, BUN 66, creatinine 1.4, glucose 139, calcium 9.6. INR 1.0. OBJECTIVE: Shows afebrile, pulse 96, respirations 20, blood pressure 121/59, oxygen saturation 98% on room air. I saw the patient at bedside with her son and the nurse RN, Palma. The patient did ambulate out of bed with the physical therapist, López earlier today. The patient is complaining of significant pain in the proximal thigh and the distal calf. This is consistent with her postoperative joint replacement surgery pain. An Juan bandage was examined and does not appear to be too tight. The cold therapy unit remains available for topical analgesia. The patient has been rotating in alternating doses of subcutaneous Dilaudid with oral oxycodone. I encouraged more frequent dosing of the oxycodone. The patient was asking for muscle relaxant. However I do not believe the muscle relaxant would be beneficial in this scenario. I would continue to encourage alternating the oral oxycodone and subcutaneous Dilaudid. I have increased the dosing of oxycodone to two different doses of 10 mg and 15 mg respectively for mild to moderate pain. The patient is concerned of about constipation. I have ordered Colace and Senokot b.i.d. which will continue. She also has p.r.n. doses of milk of magnesia available. Incentive spirometer made available at the bedside. The patient does state that NSAIDs such as Voltaren cause her to go into congestive heart failure after a plane flight in the past. I therefore discussed with the pharmacist to add NSAIDs including Toradol to her allergy list. The patient remains on Lovenox 40 mg daily as chemical anticoagulation for DVT prophylaxis. Francois Cruz M.D. DR: Leonor JOB#: [id number] CC:
[2017-11-07] MEDS: oxyCODONE 5mg IR tab ORAL PRN ×2 (03:29→10:54)
[2017-11-07 07:37] LABS: HEMATOCRIT 24.5 % (37.0-47.0); HEMOGLOBIN 7.7 G/DL (12.0-16.0); MEAN CORPUSCULAR VOLUME 93 FL (80-99); PLATELET COUNT 140 K/UL (150-450); RED BLOOD COUNT 2.64 M/UL (4.20-5.40); RED CELL DISTRIBUTION WIDTH 17.9 % (11.6-14.8); WHITE BLOOD COUNT 11.8 K/UL (4.8-10.8)
[2017-11-07] MEDS: Furosemide 40mg tab ORAL SCH (08:32)
[2017-11-07] MEDS: Docusate 100mg/10ml Liq NG SCH ×2 (08:32→17:44)
[2017-11-07] MEDS: Sennosides 8.6mg ORAL SCH ×2 (08:33→17:43)
[2017-11-07] MEDS: valACYclovir HCL 500mg tab ORAL SCH (08:33)
[2017-11-07] MEDS: Irbesartan 150mg tablet ORAL SCH (08:40)
[2017-11-07] MEDS: Spironolactone 50mg tab ORAL SCH (09:02)
[2017-11-07 10:57] LABS: % IRON SATURATION 6 % (15-50); IRON 15 ug/dL (50-175); TOTAL IRON BINDING CAPACITY 235 ug/dL (250-450)
--- NOTE | 2017-11-07 12:52 | Cardiology Report ---
APPROVED REPORT EKG Measurement Heart [id number] Sinus rhythm with 1st degree AV block with premature supraventricular complexes Left axis deviation Nonspecific intraventricular block Abnormal ECG
[2017-11-07 16:17] LABS: BASOPHILS % (AUTO) 0.4 % (0.0-2.0); EOSINOPHILS % (AUTO) 1.6 % (0.0-3.0); HEMATOCRIT 25.1 % (37.0-47.0); LYMPHOCYTES % (AUTO) 7.9 % (20.0-45.0); MEAN CORPUSCULAR VOLUME 92 FL (80-99); NEUTROPHILS % (AUTO) 81.2 % (45.0-75.0); PLATELET COUNT 152 K/UL (150-450); RED BLOOD COUNT 2.73 M/UL (4.20-5.40); RED CELL DISTRIBUTION WIDTH 17.8 % (11.6-14.8)
[2017-11-07] MEDS ORDERED: Tubing IV Secondary IV ONE (16:21)
[2017-11-07] MEDS ORDERED: D5 1/2NS 1000ml IV ONE (16:21)
[2017-11-07] MEDS ORDERED: Metoprolol Succinate XL 25mg tab ORAL ONE (17:00)
[2017-11-07] MEDS ORDERED: Metoprolol 5mg/5ml Inj IVP ONE (17:30)
[2017-11-07 18:17] LABS: ANION GAP 6 mmol/L (5-15); BLOOD UREA NITROGEN 51 mg/dL (7-18); CALCIUM 9.7 MG/DL (8.5-10.1); CARBON DIOXIDE 28 MMOL/L (21-32); CHLORIDE 103 MMOL/L (98-107); CREATININE 1.5 MG/DL (0.55-1.30); POTASSIUM 4.5 MMOL/L (3.5-5.1); SODIUM 137 MMOL/L (136-145)
--- NOTE | 2017-11-07 19:07 | Cardiology Progress Note ---
Assessment/Plan Assessment/Plan acute afib rvr reported hs of chf per chart hs cm per chart resolved per her rug washer hypothyroid hs of gout hs of colon cancer multiple drug allergies erythromycin , sulfa codeine , amoxicillin , flu shot anemia pt has declined transfer to [facility] as asymptomatic up to now but is now agreeable . will transfer to icu a as dilt drip cannot be given anywhere except icu per charger may need iv amiod as well was given po metoprolol but still remain tachy will transfer to icu with start with iv bb if ineffective will start on dilt drip is on dvt ppx continue to monitor for chf exacerbation pain management pain seem better ekg afib rvr hgb low may need transfusion of prbc serial enzyme ekg and jeanmarie duplex of lower ext has nto cp to suggest PE icu level care provided Subjective Cardiovascular: Denies: chest pain, lightheadedness, palpitations Respiratory: Denies: shortness of breath Gastrointestinal/Abdominal: Denies: abdomen distended, abdominal pain Genitourinary: Denies: burning Subjective i was called by rn this after noon with tachy ekg order subsequently noted to be in afib based on ekg pt has been rfusing transfer to [facility] bed as she is completly asymptomatic but with hr in the 120-148 range Objective Last 24 Hour Vital Signs Date Time Temp Pulse Resp B/P (MAP) Pulse Ox O2 Delivery O2 Flow Rate FiO2 11/07/17 18:15 99.3 149 21 100/57 97 Room Air 11/07/17 17:40 147 104/56 11/07/17 17:15 125 113/59 11/07/17 17:02 150 103/64 11/07/17 16:20 150 103/64 11/07/17 16:00 98 Room Air 11/07/17 16:00 98.7 128 21 113/63 98 11/07/17 13:34 97.8 11/07/17 13:04 97.8 11/07/17 11:30 92 101 103 11/07/17 11:30 97 Room Air 11/07/17 11:30 97.8 92 18 108/56 97 Room Air 11/07/17 11:30 101 117/51 11/07/17 11:30 103 117/51 11/07/17 08:40 127/56 11/07/17 08:40 100 127/56 11/07/17 08:00 98.0 100 18 125/56 97 11/07/17 08:00 97 Room Air 11/07/17 04:01 Room Air 11/07/17 04:00 98.9 92 18 100/67 98 11/07/17 00:01 Room Air 11/07/17 00:00 98.8 100 18 168/66 98 11/06/17 20:01 Room Air 11/06/17 20:00 98.4 94 18 135/59 97 General Appearance: no apparent distress, alert Neck: supple Cardiovascular: tachycardia, irregularly irregular Respiratory/Chest: lungs clear Abdomen: normal bowel sounds, non tender, soft Extremities: no swelling Intake and Output 11/06/17 11/07/17 19:00 07:00 Intake Total 440 ml 240 ml Output Total 700 ml Balance -260 ml 240 ml Intake Oral 440 ml 240 ml Output Urine Total 700 ml # Voids 1 3 Laboratory Tests Test 11/07/17 06:35 11/07/17 16:05 11/07/17 17:30 White Blood Count 11.8 K/UL (4.8-10.8) H 14.0 K/UL (4.8-10.8) H Red Blood Count 2.64 M/UL (4.20-5.40) L 2.73 M/UL (4.20-5.40) L Hemoglobin 7.7 G/DL (12.0-16.0) L 8.0 G/DL (12.0-16.0) L Hematocrit 24.5 % (37.0-47.0) L 25.1 % (37.0-47.0) L Mean Corpuscular Volume 93 FL (80-99) 92 FL (80-99) Mean Corpuscular Hemoglobin 29.0 PG (27.0-31.0) 29.2 PG (27.0-31.0) Mean Corpuscular Hemoglobin Concent 31.3 G/DL (32.0-36.0) L 31.8 G/DL (32.0-36.0) L Red Cell Distribution Width 17.9 % (11.6-14.8) H 17.8 % (11.6-14.8) H Platelet Count 140 K/UL (150-450) L 152 K/UL (150-450) Mean Platelet Volume 8.2 FL (6.5-10.1) 7.3 FL (6.5-10.1) Neutrophils (%) (Auto) % (45.0-75.0) 81.2 % (45.0-75.0) H Lymphocytes (%) (Auto) % (20.0-45.0) 7.9 % (20.0-45.0) L Monocytes (%) (Auto) % (1.0-10.0) 9.0 % (1.0-10.0) Eosinophils (%) (Auto) % (0.0-3.0) 1.6 % (0.0-3.0) Basophils (%) (Auto) % (0.0-2.0) 0.4 % (0.0-2.0) Differential Total Cells Counted 100 Neutrophils % (Manual) 81 % (45-75) H Lymphocytes % (Manual) 12 % (20-45) L Monocytes % (Manual) 6 % (1-10) Eosinophils % (Manual) 1 % (0-3) Basophils % (Manual) 0 % (0-2) Band Neutrophils 0 % (0-8) Platelet Estimate Adequate Platelet Morphology Normal Hypochromasia 1+ Anisocytosis 1+ Prothrombin Time 10.2 SEC (9.30-11.50) Prothromb Time International Ratio 1.0 (0.9-1.1) Iron Level 15 ug/dL (50-175) L Total Iron Binding Capacity 235 ug/dL (250-450) L Percent Iron Saturation 6 % (15-50) L Unsaturated Iron Binding 220 ug/dL (112-346) Sodium Level 137 MMOL/L (136-145) Potassium Level 4.5 MMOL/L (3.5-5.1) Chloride Level 103 MMOL/L (98-107) Carbon Dioxide Level 28 MMOL/L (21-32) Anion Gap 6 mmol/L (5-15) Blood Urea Nitrogen 51 mg/dL (7-18) H Creatinine 1.5 MG/DL (0.55-1.30) H Estimat Glomerular Filtration Rate mL/min (>60) Glucose Level 139 MG/DL (74-106) H Calcium Level 9.7 MG/DL (8.5-10.1) Microbiology Date/Time Source Procedure Growth Status 11/05/17 07:20 Nasal Nares MRSA Culture - Final NO METHICILLIN RESISTANT STAPH AUREUS... Complete BRISEYDA RAMIREZ Nov 07, 2017 19:07
--- NOTE | 2017-11-07 20:17 | Progress Note ---
DATE: 11/07/2017 ACUTE PAIN MANAGEMENT PHYSICIAN PROGRESS NOTE MEDICATIONS: Medication administration record reviewed. Medications include Colace, Protonix, Aldactone, valacyclovir, Senokot, allopurinol, Coreg, Lasix, , Avapro, Lovenox, Pravachol. P.r.n. medications include Roxicodone, Dilaudid,Chloraseptic, milk of magnesia, Mylanta, Zofran, Benadryl, Catapres. LABORATORY STUDIES: From this morning, November 07, 2017 shows white count 12, hematocrit 24.5, with hemoglobin of 7.7, platelets 140. Iron saturation was low. Total bilirubin 0.3. INR 1.0. PHYSICAL EXAMINATION: VITAL SIGNS: Negative for orthostatics. Pulse 100, afebrile, respirations 18, blood pressure 127/56, and oxygen saturation 97% on room air. I saw the patient at the bedside. After discussion with the nurse RN, Padma, from the day shift, and the overnight nurse RN, . The patient has been increasing the frequency of her breakthrough Dilaudid injections. I will trial her on two doses of oxycodone 15 mg as well as low dose of 10 mg. The patient believes 15 mg is working better. With this combination of subcutaneous Dilaudid alternating with oral oxycodone 15 mg, her pain has been adequately controlled. She is having more ambulation and increase activity today but her pain levels have not worsened and should continue to improve with time. The patient denies any short of breath or chest pain. Dr. Acevedo is following the patient's postoperative blood loss anemia with current hemoglobin is 7.7. With the patient's cardiac history, I will defer these issues to social services designee, Dr. Acevedo. The patient continues on Lovenox for anticoagulation for DVT prophylaxis. The incentive spirometer remains at the bedside to encourage good pulmonary toilet. Overall, the patient continues to progress well. She does have chronic constipation and I will ask the nurse to dose the patient with milk of magnesia. She will continue on her b.i.d. Colace and Senokot as well. Francois Cruz M.D. DR: Leonor JOB#: [id number] CC:
[2017-11-07] MEDS: Amiodarone 900 MG in D5W 500ml 482 ML IV SCH (20:50)
[2017-11-07] MEDS: Iron Sucrose 100 MG in NS 55 ML IV SCH (21:38)
[2017-11-07] MEDS: Enoxaparin 40mg Inj SUBQ SCH (21:38)
[2017-11-08] VITALS (38 sets, daily range): BP systolic 98–128; BP diastolic 30–64
[2017-11-08 00:31] LABS: BILIRUBIN, URINE NEGATIVE (NEGATIVE); COLOR,URINE PALE YELLOW; GLUCOSE, URINE (UA) NEGATIVE (NEGATIVE); KETONES,URINE NEGATIVE (NEGATIVE); LEUKOCYTE ESTERASE ,URINE 3+ (NEGATIVE); NITRITE,URINE NEGATIVE (NEGATIVE); PH,URINE 6 (4.5-8.0); PROTEIN,URINE NEGATIVE (NEGATIVE); UROBILINOGEN,URINE NORMAL MG/DL (0.0-1.0)
[2017-11-08 00:43] LABS: APPEARANCE,URINE SLIGHTLY CLOUDY
[2017-11-08] MEDS: Amiodarone 900 MG in D5W 500ml 482 ML IV SCH (03:10)
[2017-11-08 06:28] LABS: HEMATOCRIT 23.4 % (37.0-47.0); HEMOGLOBIN 7.6 G/DL (12.0-16.0); MEAN CORPUSCULAR VOLUME 92 FL (80-99); PLATELET COUNT 137 K/UL (150-450); RED BLOOD COUNT 2.54 M/UL (4.20-5.40); RED CELL DISTRIBUTION WIDTH 17.7 % (11.6-14.8); WHITE BLOOD COUNT 10.6 K/UL (4.8-10.8)
[2017-11-08] MEDS ORDERED: Fleet's Enema 133ml RECTAL PRN (06:45)
[2017-11-08 07:02] LABS: CREATINE KINASE 146 U/L (26-308)
--- NOTE | 2017-11-08 07:56 | Cardiology Progress Note ---
Assessment/Plan Assessment/Plan acute afib rvr reported hs of chf per chart hs cm per chart resolved per her instructor nurse hypothyroid hs of gout hs of colon cancer multiple drug allergies erythromycin , sulfa codeine , amoxicillin , flu shot anemia multiple overnite phone calls i have reviewed the lab hgb is low she remains in afib i have discussed with pt transfusion of 1 unit fo prbc but she does nto want to get tat ow i ahave also discussed with pt possible cardioversion which she declines if ok with ortho would like to start her anticoagulation for stroke prevention soon if she dose not convert to sins on amio drip will swtich to po amio and add bb for hr control and keep on anticoagulation and dc home over the next few days d/w her usual instructor nurse last nit will d/w him today as well will reevaluate later this afternoon again pt called back later adn agree to blood trasfusion we discussed armando possible risk of hiv , hep and transfusiton related reaction sondra gavee informed consent 1 unti ordred Objective Last 24 Hour Vital Signs Date Time Temp Pulse Resp B/P (MAP) Pulse Ox O2 Delivery O2 Flow Rate FiO2 11/08/17 06:00 121 14 103/56 99 Room Air 11/08/17 05:30 88 14 103/56 99 Room Air 11/08/17 05:00 87 14 127/47 99 Room Air 11/08/17 04:30 88 14 128/54 99 Room Air 11/08/17 04:00 80 11/08/17 04:00 80 12 102/44 95 Room Air 11/08/17 03:30 89 12 109/47 95 Room Air 11/08/17 03:00 104 11 119/57 96 Room Air 11/08/17 02:00 104 17 98/50 98 Room Air 11/08/17 01:30 95 12 109/41 97 Room Air 11/08/17 01:00 99 12 108/55 97 Room Air 11/08/17 00:30 101 12 109/40 95 Room Air 11/08/17 00:00 109 11/08/17 00:00 100 13 116/56 95 Room Air 11/07/17 23:30 95 12 109/40 97 Room Air 11/07/17 23:00 99.4 108 14 129/69 96 Room Air 11/07/17 22:30 111 14 115/49 95 Room Air 11/07/17 22:00 116 16 97/66 96 Room Air 11/07/17 21:30 122 16 114/69 96 Room Air 11/07/17 21:00 123 17 110/62 95 Room Air 11/07/17 20:30 122 17 91/64 97 Room Air 11/07/17 20:30 127 11/07/17 20:00 100.1 138 18 111/54 96 Room Air 11/07/17 18:15 99.3 149 21 100/57 97 Room Air 11/07/17 17:40 147 104/56 11/07/17 17:15 125 113/59 11/07/17 17:02 150 103/64 11/07/17 16:20 150 103/64 11/07/17 16:00 98 Room Air 11/07/17 16:00 98.7 128 21 113/63 98 11/07/17 13:34 97.8 11/07/17 13:04 97.8 11/07/17 11:30 92 101 103 11/07/17 11:30 97 Room Air 11/07/17 11:30 97.8 92 18 108/56 97 Room Air 11/07/17 11:30 101 117/51 11/07/17 11:30 103 117/51 11/07/17 08:40 127/56 11/07/17 08:40 100 127/56 11/07/17 08:00 98.0 100 18 125/56 97 11/07/17 08:00 97 Room Air Intake and Output 11/07/17 11/08/17 19:00 07:00 Intake Total 1550 ml 534.81 ml Output Total 475 ml Balance 1550 ml 59.81 ml Intake Oral 1550 ml 300 ml IV Total 234.81 ml Output Urine Total 475 ml # Voids 4 101 Laboratory Tests Test 11/07/17 16:05 11/07/17 17:30 11/07/17 23:15 11/08/17 05:15 White Blood Count 14.0 K/UL (4.8-10.8) H 10.6 K/UL (4.8-10.8) Red Blood Count 2.73 M/UL (4.20-5.40) L 2.54 M/UL (4.20-5.40) L Hemoglobin 8.0 G/DL (12.0-16.0) L 7.6 G/DL (12.0-16.0) L Hematocrit 25.1 % (37.0-47.0) L 23.4 % (37.0-47.0) L Mean Corpuscular Volume 92 FL (80-99) 92 FL (80-99) Mean Corpuscular Hemoglobin 29.2 PG (27.0-31.0) 29.9 PG (27.0-31.0) Mean Corpuscular Hemoglobin Concent 31.8 G/DL (32.0-36.0) L 32.4 G/DL (32.0-36.0) Red Cell Distribution Width 17.8 % (11.6-14.8) H 17.7 % (11.6-14.8) H Platelet Count 152 K/UL (150-450) 137 K/UL (150-450) L Mean Platelet Volume 7.3 FL (6.5-10.1) 8.3 FL (6.5-10.1) Neutrophils (%) (Auto) 81.2 % (45.0-75.0) H % (45.0-75.0) Lymphocytes (%) (Auto) 7.9 % (20.0-45.0) L % (20.0-45.0) Monocytes (%) (Auto) 9.0 % (1.0-10.0) % (1.0-10.0) Eosinophils (%) (Auto) 1.6 % (0.0-3.0) % (0.0-3.0) Basophils (%) (Auto) 0.4 % (0.0-2.0) % (0.0-2.0) Sodium Level 137 MMOL/L (136-145) Potassium Level 4.5 MMOL/L (3.5-5.1) Chloride Level 103 MMOL/L (98-107) Carbon Dioxide Level 28 MMOL/L (21-32) Anion Gap 6 mmol/L (5-15) Blood Urea Nitrogen 51 mg/dL (7-18) H Creatinine 1.5 MG/DL (0.55-1.30) H Estimat Glomerular Filtration Rate mL/min (>60) Glucose Level 139 MG/DL (74-106) H Calcium Level 9.7 MG/DL (8.5-10.1) Urine Color Pale yellow Urine Appearance Slightly cloudy Urine pH 6 (4.5-8.0) Urine Specific [place] 1.010 (1.005-1.035) Urine Protein Negative (NEGATIVE) Urine Glucose (UA) Negative (NEGATIVE) Urine Ketones Negative (NEGATIVE) Urine Occult Blood Negative (NEGATIVE) Urine Nitrite Negative (NEGATIVE) Urine Bilirubin Negative (NEGATIVE) Urine Urobilinogen Normal MG/DL (0.0-1.0) Urine Leukocyte Esterase 3+ (NEGATIVE) H Urine RBC 0-2 /HPF (0 - 2) Urine WBC 40-60 /HPF (0 - 2) H Urine Squamous Epithelial Cells Moderate /LPF (NONE/OCC) H Urine Bacteria Moderate /HPF (NONE) H Neutrophils % (Manual) Pending Lymphocytes % (Manual) Pending Platelet Estimate Pending Platelet Morphology Pending Prothrombin Time Pending Prothromb Time International Ratio Pending Magnesium Level 2.3 MG/DL (1.8-2.4) Total Creatine Kinase 146 U/L (26-308) Troponin I 0.008 ng/mL (0.000-0.056) Pro-B-Type Natriuretic Peptide 3119 pg/mL (0-125) H BRISEYDA RAMIREZ Nov 08, 2017 07:56
[2017-11-08 07:59] LABS: INR 0.9 (0.9-1.1)
[2017-11-08] MEDS: Furosemide 40mg tab ORAL SCH (08:38)
[2017-11-08] MEDS: Sennosides 8.6mg ORAL SCH ×2 (08:39→17:32)
[2017-11-08] MEDS: Docusate 100mg cap ORAL SCH ×2 (08:39→17:33)
--- NOTE | 2017-11-08 08:45 | Progress Note ---
DATE: 11/08/2017 ACUTE PAIN MANAGEMENT PHYSICIAN PROGRESS NOTE MEDICATIONS: Medication administration record reviewed. Medications include Colace, Protonix, Aldactone, Valtrex, Senokot, allopurinol, Lasix, thyroid, amiodarone, Lovenox, Pravachol, and iron. P.r.n. medications include oxycodone, Dilaudid, Chloraseptic, milk of magnesia, Mylanta, Zofran, Benadryl, and Catapres. OBJECTIVE: VITAL SIGNS: A new onset atrial fibrillation. Heart rate in the 120s, respiratory rate 14, blood pressure 103/56, and oxygen saturation 99% on room air. LABORATORY STUDIES: From 11/08/2017 this morning, white count 11, hemoglobin 7.6, hematocrit 23.4, and platelets 137,000. Troponin pending. Chemistry from yesterday evening 11/07/2017 shows sodium 137, potassium 4.5, chloride 103, bicarbonate 28, BUN 51, creatinine 1.5, glucose 139, and calcium 9.7. Urinalysis with 3+ leukocyte esterase, moderate bacteria. I saw the patient at the bedside in the intensive care unit. I first spoke to intensive care unit RN, Azalea, along with the orthopedic floor nurse RN, Johana, overnight. The patient developed rapid ventricular rate with atrial fibrillation. The grade foreman, Dr. Acevedo, evaluated the patient at the bedside and transferred her to the intensive care unit where she was placed on amiodarone drip. The patient denies any shortness of breath or chest pain. She remains considerably anemic and I would defer to Dr. Acevedo, her hemoglobin of 7.6. Again, the patient denies any shortness of breath or chest pain currently. The patient complains of severe constipation. She is on Colace and Senokot b.i.d. She received milk of magnesia yesterday and just received a Dulcolax suppository. I have added a p.r.n. dose of [place] enema as a next step in case the bowel movement does not occur later today. I also asked the nurse to place prune juice at the bedside, which has worked well for the patient in the past. Despite the patient's anemia, she remains on Lovenox for DVT prophylaxis. The patient has multiple medical issues including chronic renal insufficiency and coronary artery disease with a history of congestive heart failure. I will defer the patient's multiple medical issues to Dr. Acevedo. The patient's pain management regimen seems adequate. She continues to alternate the p.r.n. subcutaneous Dilaudid along with oral oxycodone 15 mg. The doses seems to be adequate. The patient has a good supply of oxycodone for home usage. Francois Cruz M.D. DR: ALEXSANDER JOB#: [id number] CC:
[2017-11-08 09:49] LABS: ANION GAP 5 mmol/L (5-15); BLOOD UREA NITROGEN 52 mg/dL (7-18); CALCIUM 9.9 MG/DL (8.5-10.1); CARBON DIOXIDE 28 MMOL/L (21-32); CHLORIDE 103 MMOL/L (98-107); CREATININE 1.6 MG/DL (0.55-1.30); POTASSIUM 4.6 MMOL/L (3.5-5.1); SODIUM 136 MMOL/L (136-145)
[2017-11-08 09:55] LABS: ALANINE AMINOTRANSFERASE 14 U/L (12-78); ALBUMIN/GLOBULIN RATIO 0.9 (1.0-2.7); ALKALINE PHOSPHATASE 54 U/L (46-116); ASPARTATE AMINO TRANSFERASE 20 U/L (15-37); BILIRUBIN,TOTAL 0.4 MG/DL (0.2-1.0)
[2017-11-08 11:17] LABS: APPEARANCE,URINE SLIGHTLY CLOUDY; BILIRUBIN, URINE NEGATIVE (NEGATIVE); COLOR,URINE PALE YELLOW; GLUCOSE, URINE (UA) NEGATIVE (NEGATIVE); KETONES,URINE NEGATIVE (NEGATIVE); LEUKOCYTE ESTERASE ,URINE 3+ (NEGATIVE); NITRITE,URINE NEGATIVE (NEGATIVE); PH,URINE 6.5 (4.5-8.0); PROTEIN,URINE 1+ (NEGATIVE); UROBILINOGEN,URINE NORMAL MG/DL (0.0-1.0)
--- NOTE | 2017-11-08 14:01 | Brief Operative Note ---
Immediate Post Operative Note Operative Note Pre-op Diagnosis: knee arthritis Procedure: total knne Post-op Diagnosis: knee arthritis Post-op Diagnosis: same as pre-op Surgeon: gladis Anesthesia: regional Specimen: yes Complications: none Condition: stable Fluids: yes Estimated Blood Loss: minimal Drains: none Implant(s) used?: Yes SIMONA CHARLES Nov 08, 2017 14:01
--- NOTE | 2017-11-08 14:02 | General Progress Note ---
Progress Note Progress Note doing well orthopedic roach NVI xray travon stanley to SIMONA Haro Nov 08, 2017 14:02
--- NOTE | 2017-11-08 14:11 | Cardiology Report ---
APPROVED REPORT EKG Measurement Heart [id number] VT P211 [id number] Atrial flutter with variable AV block Left axis deviation Nonspecific intraventricular block Abnormal ECG
--- NOTE | 2017-11-08 14:41 | Cardiology Report ---
APPROVED REPORT EXAM: Two-dimensional and M-mode echocardiogram with Doppler and color Doppler. INDICATION A FLUTTER M-Mode DIMENSIONS IVSd1.0 (0.7-1.1cm)Left Atrium (MM)3.9 (1.6-4.0cm) LVDd5.0 (3.5-5.6cm)Aortic Root3.8 (2.0-3.7cm) PWd0.9 (0.7-1.1cm)Aortic Cusp Exc.1.9 (1.5-2.0cm) IVSs1.0 cm LVDs3.2 (2.5-4.0cm) PWs1.7 cm Normal left ventricular chamber size. Dyskinetic septal motion. Left ventricular ejection fraction estimated to be 50 %. Mild left ventricular hypertrophy by 2-D. No evidence of pericardial effusion All other cardiac chamber sizes are within normal limits. Focal aortic valve sclerosis with adequate cusp excursion. Thickened mitral valve leaflets with normal excursion. Mitral annulus and aortic root calcification. Normal pulmonic valve structure . Normal tricuspid valve structure. IVC dilated at 3.1 cm with physiologic collapse . A color flow and spectral Doppler study was performed and revealed: No aortic regurgitation. Trace mitral regurgitation. left ventricular diastolic function can not determined due to atrial flutter . Mild tricuspid regurgitation. Tricuspid systolic velocities suggests peak right ventricular systolic pressure of 49 mmHg, consistent with mild pulmonary hypertension. Trace Pulmonic regurgitation present.
--- NOTE | 2017-11-08 17:57 | Cardiology Progress Note ---
Assessment/Plan Assessment/Plan acute afib rvr no back to sinus reported hs of chf per chart hs cm per chart resolved per her roper operator hypothyroid hs of gout hs of colon cancer multiple drug allergies erythromycin , sulfa codeine , amoxicillin , flu shot anemia 2nd visit today multip phone call over lidia joyce to ay about 1 hour ago finally converted to sinus ekg reviewed personally will keep on iv amiod for 18 hhour then convert to po d/w ortho ok to resume anticoagulation will start on eliquis in am 2.5 mg bid and if toelrat after 1 day willl cahge to full dose she looks wel now duration fo icu care 75 min today Subjective Cardiovascular: Denies: chest pain, lightheadedness, palpitations Respiratory: Denies: shortness of breath Gastrointestinal/Abdominal: Denies: abdominal pain Genitourinary: Denies: burning Subjective back to sinus but feel no different Objective Last 24 Hour Vital Signs Date Time Temp Pulse Resp B/P (MAP) Pulse Ox O2 Delivery O2 Flow Rate FiO2 11/08/17 17:33 98.5 11/08/17 17:00 75 16 119/55 100 Room Air 11/08/17 16:30 76 16 127/57 99 Room Air 11/08/17 16:00 98.5 89 14 107/55 100 Room Air 11/08/17 15:00 92 17 120/56 99 Room Air 11/08/17 14:30 91 18 117/48 99 Room Air 11/08/17 14:00 89 14 122/50 99 Room Air 11/08/17 13:30 80 16 109/59 99 Room Air 11/08/17 13:00 85 14 121/44 99 Room Air 11/08/17 12:30 79 16 125/52 99 Room Air 11/08/17 12:00 98.3 98 14 107/58 100 Room Air 11/08/17 11:00 92 14 123/47 99 Room Air 11/08/17 10:30 96 14 124/60 100 Room Air 11/08/17 10:00 95 16 120/62 100 Room Air 11/08/17 09:30 97 14 117/50 100 Room Air 11/08/17 09:20 99.4 11/08/17 09:00 95 16 112/64 100 Room Air 11/08/17 08:37 99.4 11/08/17 08:30 99 14 120/55 100 Room Air 11/08/17 08:00 98.8 98 14 107/58 100 Room Air 11/08/17 07:30 95 14 111/50 99 Room Air 11/08/17 07:00 98 14 110/51 99 Room Air 11/08/17 06:00 121 14 103/56 99 Room Air 11/08/17 05:30 88 14 103/56 99 Room Air 11/08/17 05:00 87 14 127/47 99 Room Air 11/08/17 04:30 88 14 128/54 99 Room Air 11/08/17 04:00 80 11/08/17 04:00 80 12 102/44 95 Room Air 11/08/17 03:30 89 12 109/47 95 Room Air 11/08/17 03:00 104 11 119/57 96 Room Air 11/08/17 02:00 104 17 98/50 98 Room Air 11/08/17 01:30 95 12 109/41 97 Room Air 11/08/17 01:00 99 12 108/55 97 Room Air 11/08/17 00:30 101 12 109/40 95 Room Air 11/08/17 00:00 109 11/08/17 00:00 100 13 116/56 95 Room Air 11/07/17 23:30 95 12 109/40 97 Room Air 11/07/17 23:00 99.4 108 14 129/69 96 Room Air 11/07/17 22:30 111 14 115/49 95 Room Air 11/07/17 22:00 116 16 97/66 96 Room Air 11/07/17 21:30 122 16 114/69 96 Room Air 11/07/17 21:00 123 17 110/62 95 Room Air 11/07/17 20:30 122 17 91/64 97 Room Air 11/07/17 20:30 127 11/07/17 20:00 100.1 138 18 111/54 96 Room Air 11/07/17 18:15 99.3 149 21 100/57 97 Room Air General Appearance: no apparent distress, alert Neck: supple Cardiovascular: normal rate Respiratory/Chest: lungs clear, normal breath sounds Abdomen: normal bowel sounds, non tender, soft Extremities: no swelling Intake and Output 11/07/17 11/08/17 19:00 07:00 Intake Total 1550 ml 535.31 ml Output Total 625 ml Balance 1550 ml -89.69 ml Intake Oral 1550 ml 300 ml IV Total 235.31 ml Output Urine Total 625 ml # Voids 4 102 # Bowel Movements 1 Laboratory Tests Test 11/07/17 23:15 11/08/17 05:15 11/08/17 09:00 11/08/17 10:25 Urine Color Pale yellow Pale yellow Urine Appearance Slightly cloudy Slightly cloudy Urine pH 6 (4.5-8.0) 6.5 (4.5-8.0) Urine Specific [place] 1.010 (1.005-1.035) 1.005 (1.005-1.035) Urine Protein Negative (NEGATIVE) 1+ (NEGATIVE) H Urine Glucose (UA) Negative (NEGATIVE) Negative (NEGATIVE) Urine Ketones Negative (NEGATIVE) Negative (NEGATIVE) Urine Occult Blood Negative (NEGATIVE) 2+ (NEGATIVE) H Urine Nitrite Negative (NEGATIVE) Negative (NEGATIVE) Urine Bilirubin Negative (NEGATIVE) Negative (NEGATIVE) Urine Urobilinogen Normal MG/DL (0.0-1.0) Normal MG/DL (0.0-1.0) Urine Leukocyte Esterase 3+ (NEGATIVE) H 3+ (NEGATIVE) H Urine RBC 0-2 /HPF (0 - 2) 2-4 /HPF (0 - 2) H Urine WBC 40-60 /HPF (0 - 2) H 40-60 /HPF (0 - 2) H Urine Squamous Epithelial Cells Moderate /LPF (NONE/OCC) H Few /LPF (NONE/OCC) Urine Bacteria Moderate /HPF (NONE) H Moderate /HPF (NONE) H White Blood Count 10.6 K/UL (4.8-10.8) Red Blood Count 2.54 M/UL (4.20-5.40) L Hemoglobin 7.6 G/DL (12.0-16.0) L Hematocrit 23.4 % (37.0-47.0) L Mean Corpuscular Volume 92 FL (80-99) Mean Corpuscular Hemoglobin 29.9 PG (27.0-31.0) Mean Corpuscular Hemoglobin Concent 32.4 G/DL (32.0-36.0) Red Cell Distribution Width 17.7 % (11.6-14.8) H Platelet Count 137 K/UL (150-450) L Mean Platelet Volume 8.3 FL (6.5-10.1) Neutrophils (%) (Auto) % (45.0-75.0) Lymphocytes (%) (Auto) % (20.0-45.0) Monocytes (%) (Auto) % (1.0-10.0) Eosinophils (%) (Auto) % (0.0-3.0) Basophils (%) (Auto) % (0.0-2.0) Differential Total Cells Counted 100 Neutrophils % (Manual) 82 % (45-75) H Lymphocytes % (Manual) 13 % (20-45) L Monocytes % (Manual) 4 % (1-10) Eosinophils % (Manual) 1 % (0-3) Basophils % (Manual) 0 % (0-2) Band Neutrophils 0 % (0-8) Platelet Estimate Decreased L Platelet Morphology Normal Hypochromasia 1+ Anisocytosis 1+ Prothrombin Time 9.9 SEC (9.30-11.50) Prothromb Time International Ratio 0.9 (0.9-1.1) Magnesium Level 2.3 MG/DL (1.8-2.4) Total Creatine Kinase 146 U/L (26-308) Troponin I 0.008 ng/mL (0.000-0.056) Pro-B-Type Natriuretic Peptide 3119 pg/mL (0-125) H Sodium Level 136 MMOL/L (136-145) Potassium Level 4.6 MMOL/L (3.5-5.1) Chloride Level 103 MMOL/L (98-107) Carbon Dioxide Level 28 MMOL/L (21-32) Anion Gap 5 mmol/L (5-15) Blood Urea Nitrogen 52 mg/dL (7-18) H Creatinine 1.6 MG/DL (0.55-1.30) H Estimat Glomerular Filtration Rate mL/min (>60) Glucose Level 129 MG/DL (74-106) H Calcium Level 9.9 MG/DL (8.5-10.1) Total Bilirubin 0.4 MG/DL (0.2-1.0) Aspartate Amino Transf (AST/SGOT) 20 U/L (15-37) Alanine Aminotransferase (ALT/SGPT) 14 U/L (12-78) Alkaline Phosphatase 54 U/L (46-116) Total Protein 6.4 G/DL (6.4-8.2) Albumin 3.0 G/DL (3.4-5.0) L Globulin 3.4 g/dL Albumin/Globulin Ratio 0.9 (1.0-2.7) L BRISEYDA RAMIREZ Nov 08, 2017 17:57
[2017-11-08] MEDS ORDERED: Amiodarone 200mg tab ORAL SCH (18:00)
[2017-11-08] MEDS: Enoxaparin 40mg Inj SUBQ SCH (20:37)
[2017-11-08] MEDS: Iron Sucrose 100 MG in NS 55 ML IV SCH (20:38)
[2017-11-08] MEDS ORDERED: Spironolactone 50mg tab ORAL SCH (21:00)
[2017-11-08] MEDS ORDERED: valACYclovir HCL 500mg tab ORAL SCH (21:00)
[2017-11-09] VITALS (15 sets, daily range): BP systolic 98–143; BP diastolic 40–96
[2017-11-09 05:23] LABS: BASOPHILS % (AUTO) 0.7 % (0.0-2.0); EOSINOPHILS % (AUTO) 3.5 % (0.0-3.0); HEMATOCRIT 27.5 % (37.0-47.0); HEMOGLOBIN 8.9 G/DL (12.0-16.0); LYMPHOCYTES % (AUTO) 9.8 % (20.0-45.0); MEAN CORPUSCULAR VOLUME 92 FL (80-99); MONOCYTES % (AUTO) 7.4 % (1.0-10.0); NEUTROPHILS % (AUTO) 78.6 % (45.0-75.0); PLATELET COUNT 165 K/UL (150-450); RED BLOOD COUNT 2.99 M/UL (4.20-5.40)
[2017-11-09 05:33] LABS: INR 0.9 (0.9-1.1)
[2017-11-09 05:48] LABS: ANION GAP 7 mmol/L (5-15); BLOOD UREA NITROGEN 53 mg/dL (7-18); CARBON DIOXIDE 28 MMOL/L (21-32); CHLORIDE 101 MMOL/L (98-107); CREATININE 1.6 MG/DL (0.55-1.30); POTASSIUM 4.3 MMOL/L (3.5-5.1); SODIUM 136 MMOL/L (136-145)
[2017-11-09] MEDS: Furosemide 40mg tab ORAL SCH (08:46)
[2017-11-09] MEDS: Docusate 100mg cap ORAL SCH ×2 (08:47→18:38)
[2017-11-09] MEDS ORDERED: Amiodarone 200mg tab ORAL SCH (09:00)
--- NOTE | 2017-11-09 13:59 | Cardiology Progress Note ---
Assessment/Plan Assessment/Plan acute afib rvr now in sinus chemical cardioversion reported hs of chf per chart hs cm per chart resolved per her manager payment hypothyroid hs of gout hs of colon cancer multiple drug allergies erythromycin , sulfa codeine , amoxicillin , flu shot anemia remain in sinus i have d/w dr garcia who feel at this time full anticoagulation may leed to sig bleeding and subsequent damage to her knee if given now and with in the next 1- 2 weeks she was in afib probable less than or equal to 24 hours and not longer so chances of development of cardiac thrombosis in 24 hour would be low weighting those risks vs benefit i feel indicates that she shoulb be kept off full anticoagualtion as long s remain in sinus for the next 1-2 weeks until knee heals encoug hto be safe for anticoaguation and her usuall manager payment may be able to start at that time i have discussed both option with the pt and my feelings she understands that each option carries its own risks but my proposal i feel would be the most acceptable therapoy for her at this point will need at least 1 day of PT (she wanted originally ryan khan d home from the icu directly ) she has not want to be transfer to tele will transfer to ortho directly amiod 400 mg bid for the next few days ekg dialy echo noted ef 50% labs noted hgb now to baseline level will repaet labs in am Subjective Cardiovascular: Denies: chest pain, irregular heart rate, lightheadedness, palpitations Respiratory: Denies: shortness of breath, SOB with excertion Gastrointestinal/Abdominal: Denies: constipated, nausea Genitourinary: Denies: burning Objective Last 24 Hour Vital Signs Date Time Temp Pulse Resp B/P (MAP) Pulse Ox O2 Delivery O2 Flow Rate FiO2 11/09/17 12:00 74 13 126/46 98 Room Air 11/09/17 11:00 69 11 126/46 98 Room Air 11/09/17 10:00 70 13 130/41 98 Room Air 11/09/17 09:00 98.8 80 18 141/52 100 Room Air 11/09/17 08:00 75 13 123/96 99 Room Air 11/09/17 07:00 73 13 123/42 96 Room Air 11/09/17 06:00 74 13 137/48 96 Room Air 11/09/17 05:00 80 12 119/40 97 Room Air 11/09/17 04:00 98.3 76 12 132/45 100 Room Air 11/09/17 04:00 92 11/09/17 03:00 80 11 104/68 99 Room Air 11/09/17 02:00 85 13 109/72 99 Room Air 11/09/17 01:00 85 11 98/61 99 Room Air 11/09/17 00:00 98.6 87 11 104/65 99 Room Air 11/09/17 00:00 77 11/08/17 23:00 77 12 121/30 100 Room Air 11/08/17 22:00 81 18 116/41 98 Room Air 11/08/17 21:00 82 14 114/42 98 Room Air 11/08/17 20:30 80 32 120/48 100 Room Air 11/08/17 20:00 80 25 111/50 100 Room Air 11/08/17 20:00 81 11/08/17 20:00 98.3 76 14 118/43 98 Room Air 11/08/17 19:00 80 18 115/48 100 Room Air 11/08/17 18:03 98.5 11/08/17 18:00 78 18 118/43 99 Room Air 11/08/17 17:33 98.5 11/08/17 17:00 75 16 119/55 100 Room Air 11/08/17 16:30 76 16 127/57 99 Room Air 11/08/17 16:00 98.5 89 14 107/55 100 Room Air 11/08/17 15:00 92 17 120/56 99 Room Air 11/08/17 14:30 91 18 117/48 99 Room Air 11/08/17 14:00 89 14 122/50 99 Room Air General Appearance: no apparent distress, alert Neck: supple Cardiovascular: normal rate, regular rhythm Respiratory/Chest: lungs clear, normal breath sounds Abdomen: normal bowel sounds, non tender, soft Extremities: no swelling Intake and Output 11/08/17 11/09/17 19:00 07:00 Intake Total 805.75 ml 500 ml Balance 805.75 ml 500 ml Intake Oral 800 ml 500 ml IV Total 5.75 ml # Voids 3 3 # Bowel Movements 4 6 Laboratory Tests Test 11/09/17 00:00 11/09/17 04:15 11/09/17 09:40 Stool Occult Blood Pending Pending White Blood Count 12.0 K/UL (4.8-10.8) H Red Blood Count 2.99 M/UL (4.20-5.40) L Hemoglobin 8.9 G/DL (12.0-16.0) L Hematocrit 27.5 % (37.0-47.0) L Mean Corpuscular Volume 92 FL (80-99) Mean Corpuscular Hemoglobin 29.7 PG (27.0-31.0) Mean Corpuscular Hemoglobin Concent 32.3 G/DL (32.0-36.0) Red Cell Distribution Width 17.0 % (11.6-14.8) H Platelet Count 165 K/UL (150-450) Mean Platelet Volume 8.1 FL (6.5-10.1) Neutrophils (%) (Auto) 78.6 % (45.0-75.0) H Lymphocytes (%) (Auto) 9.8 % (20.0-45.0) L Monocytes (%) (Auto) 7.4 % (1.0-10.0) Eosinophils (%) (Auto) 3.5 % (0.0-3.0) H Basophils (%) (Auto) 0.7 % (0.0-2.0) Prothrombin Time 9.8 SEC (9.30-11.50) Prothromb Time International Ratio 0.9 (0.9-1.1) Sodium Level 136 MMOL/L (136-145) Potassium Level 4.3 MMOL/L (3.5-5.1) Chloride Level 101 MMOL/L (98-107) Carbon Dioxide Level 28 MMOL/L (21-32) Anion Gap 7 mmol/L (5-15) Blood Urea Nitrogen 53 mg/dL (7-18) H Creatinine 1.6 MG/DL (0.55-1.30) H Estimat Glomerular Filtration Rate mL/min (>60) Glucose Level 114 MG/DL (74-106) H Calcium Level 10.0 MG/DL (8.5-10.1) Magnesium Level 2.7 MG/DL (1.8-2.4) H Pro-B-Type Natriuretic Peptide 2414 pg/mL (0-125) H Thyroid Stimulating Hormone (TSH) 1.808 uiU/mL (0.358-3.740) Microbiology Date/Time Source Procedure Growth Status 11/08/17 10:25 Urine,Clean Catch Urine Culture - Preliminary Gram Negative Gael Resulted 11/07/17 23:15 Urine,Clean Catch Urine Culture - Preliminary Gram Negative Gael Resulted BRISEYDA RAMIREZ Nov 09, 2017 13:59
[2017-11-09] MEDS ORDERED: Chloraseptic Spray 20mL Bottle ORAL PRN (14:23)
[2017-11-09] MEDS ORDERED: Fleet's Enema 133ml RECTAL PRN (14:25)
[2017-11-09] MEDS ORDERED: oxyCODONE 5mg IR tab ORAL PRN ×2 (14:26→14:45)
[2017-11-09] MEDS ORDERED: NS 275ml ONE (17:34)
[2017-11-09] MEDS ORDERED: Tubing Blood Filter IV ONE (17:34)
[2017-11-09] MEDS: Spironolactone 50mg tab ORAL SCH (20:51)
[2017-11-09] MEDS: Amiodarone 200mg tab ORAL SCH (20:51)
[2017-11-09] MEDS: valACYclovir HCL 500mg tab ORAL SCH (20:55)
[2017-11-09] MEDS: Enoxaparin 40mg Inj SUBQ SCH (20:55)
[2017-11-09] MEDS ORDERED: Iron Sucrose 100 MG in NS 55 ML IV SCH (21:00)
[2017-11-10 04:00] VITALS: BP 151/63
[2017-11-10] MEDS: Docusate 100mg cap ORAL SCH ×2 (08:46→17:17)
[2017-11-10] MEDS: Furosemide 40mg tab ORAL SCH (08:47)
[2017-11-10] MEDS: Amiodarone 200mg tab ORAL SCH ×2 (08:47→20:52)
[2017-11-10 08:51] VITALS: BP 125/46
[2017-11-10 11:57] VITALS: BP 128/54
--- NOTE | 2017-11-10 12:21 | General Progress Note ---
Progress Note Progress Note doing great xrays perfect swelling minimal incision clear no calf pain neuro vascular intact cardio stable per promise pain per SIMONA Randolph Nov 10, 2017 12:21
--- NOTE | 2017-11-10 13:24 | Cardiology Progress Note ---
Assessment/Plan Assessment/Plan acute afib rvr now in sinus chemical cardioversion reported hs of chf per chart hs cm per chart resolved per her food and nutrition services assistant hypothyroid hs of gout hs of colon cancer multiple drug allergies erythromycin , sulfa codeine , amoxicillin , flu shot anemia remain in sinus i have d/w dr garcia who feel at this time full anticoagulation may leed to sig bleeding and subsequent damage to her knee if given now and with in the next 1- 2 weeks she was in afib probable less than or equal to 24 hours and not longer so chances of development of cardiac thrombosis in 24 hour would be low weighting those risks vs benefit i feel indicates that she should be kept off full anticoagulation as long s remain in sinus for the next 1-2 weeks until knee heals encough to be safe for anticoagulation and her usual food and nutrition services assistant may be able to start at that time amiod 400 mg bid for the next few days ekg reviewed remain in sinus echo noted ef 50% will repeat labs in am understands to see her food and nutrition services assistant with 2-3 days of dc coreg until she is told to resume by her food and nutrition services assistant lynne allan told to have 1 moer day of PT by dr garcia will see about dc tomorrow Subjective Cardiovascular: Denies: chest pain, irregular heart rate, lightheadedness, palpitations Respiratory: Denies: shortness of breath Gastrointestinal/Abdominal: Denies: abdominal pain Genitourinary: Denies: burning Objective Last 24 Hour Vital Signs Date Time Temp Pulse Resp B/P (MAP) Pulse Ox O2 Delivery O2 Flow Rate FiO2 11/10/17 11:57 98.2 70 20 128/54 99 Room Air 11/10/17 08:51 98.5 72 20 125/46 96 Room Air 11/10/17 04:00 98.0 73 18 151/63 98 11/09/17 20:00 98.4 77 18 129/52 97 General Appearance: no apparent distress, alert Neck: supple Cardiovascular: normal rate, regular rhythm Respiratory/Chest: lungs clear Abdomen: normal bowel sounds, non tender, soft Extremities: no swelling Intake and Output 11/09/17 11/10/17 19:00 07:00 Intake Total 100 ml 480 ml Output Total 300 ml Balance -200 ml 480 ml Intake Oral 100 ml 480 ml Output Urine Total 300 ml # Voids 81 2 # Bowel Movements 3 Laboratory Tests Test 11/10/17 06:15 Stool Occult Blood Negative (NEGATIVE) Microbiology Date/Time Source Procedure Growth Status 11/08/17 10:25 Urine,Clean Catch Urine Culture - Final Escherichia Coli Complete 11/07/17 23:15 Urine,Clean Catch Urine Culture - Final Escherichia Coli Complete BRISEYDA RAMIREZ Nov 10, 2017 13:24
[2017-11-10] MEDS ORDERED: oxyCODONE 5mg IR tab ORAL PRN (14:45)
[2017-11-10 16:29] VITALS: BP 140/52
[2017-11-10 20:00] VITALS: BP 133/50
[2017-11-10] MEDS: valACYclovir HCL 500mg tab ORAL SCH (20:51)
[2017-11-10] MEDS: Spironolactone 50mg tab ORAL SCH (20:52)
[2017-11-10] MEDS: Enoxaparin 40mg Inj SUBQ SCH (20:56)
[2017-11-11] VITALS: BP 146/54
[2017-11-11] MEDS: oxyCODONE 5mg IR tab ORAL PRN ×2 (01:05→16:24)
[2017-11-11 04:00] VITALS: BP 124/64
[2017-11-11 08:00] VITALS: BP 108/62
[2017-11-11] MEDS: Docusate 100mg cap ORAL SCH ×2 (09:44→18:00)
[2017-11-11] MEDS: Amiodarone 200mg tab ORAL SCH (09:44)
[2017-11-11] MEDS: Furosemide 40mg tab ORAL SCH (09:45)
[2017-11-11 11:48] VITALS: BP 137/57
[2017-11-11 16:05] VITALS: BP 147/60
[2017-11-11] MEDS ORDERED: Tubing IV Secondary IV ONE ×2 (18:44)
--- NOTE | 2017-11-11 22:15 | Discharge Summary ---
DATE OF ADMISSION: 11/05/2017 DATE OF DISCHARGE: 11/11/2017 DISCHARGE DIAGNOSES: 1. Status post total knee replacement. 2. Acute onset of atrial fibrillation with rapid ventricular response postoperatively. 3. Tachycardia. 4. Hypothyroidism. 5. Multiple drug allergies. 6. Anemia postop and preop. HOSPITAL COURSE: This patient was admitted to the hospital after knee surgery, was noted to be somewhat anemic, was followed over the next couple of days and did well initially postop, recently developed acute onset atrial fibrillation with rapid ventricular response. Initially, she was transferred to telemetry and eventually was transferred to the intensive care unit where intravenous administration of amiodarone was initiated. The patient is a poor candidate for anticoagulation full dose because of her postoperative status. Amiodarone intravenously eventually resulted in cardioversion. The patient was maintained on oral amiodarone therapy at 400 mg twice daily. In discussion with Dr. Mcfarlane, the patient's orthopedic surgeon, it was felt that the patient is a poor candidate for anticoagulation with the risk of bleeding and damage to her recent surgery on her knee. Therefore, it was decided that the patient could be getting DVT prophylactic dose of Lovenox and as long as she is maintained in sinus rhythm, to follow up with her video poker floorman, Dr. Roche as outpatient. We have completely discussed with the patient. The patient's prescription for Lovenox and amiodarone were called into her pharmacy. On the day of discharge, she did have an echocardiogram that showed ejection fraction of 50%. EKG showed sinus rhythm. The patient was instructed to follow up with her video poker floorman over two to three days after discharge and she understood and not to take any Coreg until she is told to resume that by her video poker floorman. Daryl Acevedo M.D. DR: PANCHITO JOB#: [id number] CC:
--- NOTE | 2017-11-12 15:29 | Cardiology Report ---
APPROVED REPORT EKG Measurement Heart [id number] Normal sinus rhythm Left axis deviation Left bundle branch block Abnormal ECG
--- NOTE | 2017-11-12 15:31 | Cardiology Report ---
APPROVED REPORT EKG Measurement Heart [id number] Normal sinus rhythm Nonspecific intraventricular block Abnormal ECG
--- NOTE | 2017-11-13 21:56 | Diagnostic Imaging Report ---
APPROVED REPORT CPT Code: 04872 RIGHT LEG : Imaging reveals a patent deep venous system . There is no evidence of thrombus within the femoral, popliteal or tibial segments. The greater saphenous veins are also within normal limits. Doppler indicates normal spontaneous flow within these segments. LEFT LEG: Imaging reveals a patent deep venous system . There is no evidence of thrombus within the femoral or tibial segments.The poplitea ольга wasnot visulized due to dressing .The greater saphenous veins are also within normal limits. Doppler indicates normal spontaneous flow within these segments.
--- NOTE | 2017-11-14 13:10 | Discharge Summary ---
Discharge Summary Hospital Course Date of Admission Nov 05, 2017 at 06:17 Date of Discharge Nov 11, 2017 at 18:45 Admitting Diagnosis Left knee end-stage osteoarthritis with deformity Reason for Hospitalization: elective surgery HPI Lilliana Vieyra is a 72 year old female who was admitted on Nov 05, 2017 at 06: 17 for Left knee end-stage osteoarthritis with deformity Patient was admitted for elective surgery Consultations dr Acevedo-, curriculum developer dr Cruz - pain specialist Procedures . s/p 11/05/[address] Gonzales Langley M.D. Left total knee replacement with lateral retinacular release, modifier 22 secondary to deformity. Hospital Course s/p surgery initially course of recovery unremarkable pain management addressed and controlled pain specialist followed neurovascular intact incision clean, no drainage ambulated with PT IS while in the bed developed A fib with RVR transferred to tele and then to ICU on Amiodarone gtt No full a/coagulation given recent postop status Chemically converted to SR and remained in SR till dc( last ECG SR) ECHO with EF 50% and RVSP of 49 c/w mild pulmonary HTN prior had hx of cardiomyopathy as per conversation with her curriculum developer] required transfusion of 1 U PRBC HH remained at baseline tolerated diet, working with PT, ambulated freely voided freely pain controlled, neurovascular inatct incision clean, healing cleared for dc on Lovenox ( fro DVT prophylaxis and Amiodarone ) scripts provided by cardio instructions provided to see her curriculum developer with 2-3 days of dc dc Coreg until she is told to resume by her curriculum developer fup with surgeon as outpt as advised by surgeon FINAL DIAGNOSIS Left knee end-stage osteoarthritis with deformity s/p 11/05 Left total knee replacement with lateral retinacular release, acute A fib with RVR- resolved CHF hx Hx of cardiomyopathy -resolved hypothyroidism gout Hx of colon Ca anemia , requiring blood transfusion Discharge Medications Continued Medications: Allopurinol* (Allopurinol*) 300 Mg Tablet 300 MG ORAL DAILY, TAB Biotin (Biotin) 10 Mg Tablet 3000 MG PO HS, TAB Candesartan Cilexetil (Candesartan Cilexetil) 16 Mg Tablet 16 MG PO DAILY, TAB Ergocalciferol (Vitamin D2)* (Vitamin D*) 50,000 Unit Capsule [id number] UNIT ORAL ONCE A WEEK, CAP Furosemide* (Lasix*) 40 Mg Tablet 40 MG ORAL DAILY, TAB Melatonin (Melatonin) 3 Mg Tablet 3 MG ORAL BEDTIME, TAB Potassium Bicarbonate/Cit Ac (Potassium 25 Meq Tablet Eff) 25 Meq Tablet.eff 25 MEQ PO, TAB Pravastatin Sodium (Pravachol) 40 Mg Tablet 20 MG ORAL DAILY, TAB Sennosides/Docusate Sodium (Senna Plus Tablet) 1 Each Tablet 5 EACH PO DAILY, TAB Spironolactone* (Spironolactone*) 100 Mg Tablet 100 MG ORAL DAILY, TAB Thyroid* (Clinton Thyroid*) 30 Mg Tablet 90 MG ORAL DAILY, TAB 0 Refills Ubiquinol (Ubiquinol) 100 Mg Capsule 100 MG PO DAILY, CAP Valacyclovir Hcl* (Valtrex*) 500 Mg Tablet 500 MG ORAL DAILY, TAB [ev plus] () 1500 MG ORAL DAILY [preservision vitamin] () 2 CAP ORAL DAILY [Vit B6] () 1 TAB PO HS Discontinued Medications: Carvedilol* (Carvedilol*) 3.125 Mg Tablet 3.125 MG ORAL DAILY, TAB Discharge Condition Upon Discharge: stable Discharge Disposition Patient was discharged to Home (01) Discharge Diagnoses: Discharge Instructions Discharge Instructions Special Instructions I have been assigned to complete a D/C Summary on this account. I was not involved in the patient management Lauren Good NP (Vanchtein) Nov 14, 2017 13:10
== END 2017-11-11 18:45 | disposition home or self-care (01) | DRG 470 ==
LOC: SDSOVERFLO 06:17 → 3E 13:14 → ICU 11-07 20:38 → 3E 11-09 14:19
PROC: 0MNP0ZZ Release Left Knee Bursa and Ligament, Open Approach (ICD-10-PCS; principal; 2017-11-05 07:30)
PROC: 0SRD0J9 Replacement of Left Knee Joint with Synthetic Substitute, Cemented, Open Approach (ICD-10-PCS; principal; 2017-11-05 07:30)
DX: M17.12 Unilateral primary osteoarthritis, left knee (principal); I13.0 Hypertensive heart and chronic kidney disease with heart failure and stage 1 through stage 4 chronic kidney disease, or unspecified chronic kidney disease; I42.9 Cardiomyopathy, unspecified; I47.1 Supraventricular tachycardia; Z96.651 Presence of right artificial knee joint; N18.9 Chronic kidney disease, unspecified; E03.9 Hypothyroidism, unspecified; Z85.038 Personal history of other malignant neoplasm of large intestine; Z85.828 Personal history of other malignant neoplasm of skin; I44.0 Atrioventricular block, first degree; E87.6 Hypokalemia; G89.18 Other acute postprocedural pain; E66.9 Obesity, unspecified; Z68.29 Body mass index [BMI] 29.0-29.9, adult; K59.00 Constipation, unspecified; I48.91 Unspecified atrial fibrillation; M10.9 Gout, unspecified; D64.9 Anemia, unspecified; M21.862 Other specified acquired deformities of left lower leg
CPT/HCPCS: 36415; 80048; 80053; 81001; 82270; 82550; 83540; 83550; 83735; 83880; 84443; 84484; 85007; 85025; 85610; 86850; 86900; 86901; 86920; 87081; 87086; 87181; 93005; 93306; 93970; 94003; 94150; J0282; J2250; S0077